=== PATIENT | female | born 1955 | race Caucasian/White ===

== ENCOUNTER → 2016-08-31 | Outpatient (CLI) | payer BC ==
[~2016-08-31] MED LIST: ASPI325T5 PO; ATAC8TAB PO; ATEN25TA PO; ESTR62CR PV; FISH1000 PO; HYDR12.55 PO; LIPI10TA PO; LYSI500C PO; OMEP20CA3 PO; PRED10PA PO; PRED10TA2 PO; SENN8.6T7 PO; VALT1TAB PO
--- NOTE | 2016-08-31 14:10 | REP ---
CHEST X-RAY: Two views. HISTORY: Shortness of breath. History of sarcoidosis. Cough. COMPARISON CHEST X-RAY: February 23, 2013. FINDINGS: The lungs are symmetrically aerated and free of infiltrate. Mild linear fibrosis is again seen in the left base. Cardiomediastinal silhouette is unremarkable and unchanged. Pleural angles are sharp. No hilar or mediastinal mass is seen. No pulmonary parenchymal nodule or infiltrate is appreciated. IMPRESSION: No active disease. Mild linear fibrosis persists in the left base. Signed by Elan Armstrong MD 08/31/2016 03:01 P
== END ==
LOC: M SMT 13:13
PROVIDERS: ATTEND Nurse Practitioner Adult Health
DX: J84.10 Pulmonary fibrosis, unspecified (principal)

== ENCOUNTER → 2016-10-11 | Outpatient (REF) | payer BC ==
[~2016-10-11] MED LIST changes: +ASPI1TAB PO; +ATEN50TA2 PO; +HYDR25TAB PO; +MACR100C3 PO
== END ==
LOC: M LAB REF 20:18
PROVIDERS: ATTEND Physician Assistant
DX: N39.0 Urinary tract infection, site not specified (principal)

== ENCOUNTER 2016-10-14 18:09 | Emergency (ER) | payer OTHER, BC ==
[~2016-10-14] VITALS: Ht 152.4 cm; Wt 81.6 kg
[~2016-10-14 18:09] MED LIST changes: -ASPI1TAB PO; -ATEN50TA2 PO; -HYDR25TAB PO; -MACR100C3 PO
[2016-10-14] MEDS ORDERED: HYDR25TAB PO (19:14)
[2016-10-14] MEDS ORDERED: ASPI1TAB PO (19:14)
[2016-10-14] MEDS ORDERED: ATEN50TA2 PO (19:14)
[2016-10-14] MEDS ORDERED: MACR100C3 PO (19:15)
[2016-10-14] MEDS ORDERED: NS 1,000 ML IV ONE (22:00)
[2016-10-14] MEDS ORDERED: ACETAMINOPHEN 325 MG TAB PO ONE (22:00)
[2016-10-14 23:57] VITALS: BP 155/71
== END 2016-10-14 23:58 | disposition home or self-care (01) ==
LOC: M ED 19:51
DX: S06.0X0A Concussion without loss of consciousness, initial encounter (principal); W22.8XXA Striking against or struck by other objects, initial encounter; Y92.238 Other place in hospital as the place of occurrence of the external cause; Y93.89 Activity, other specified; Y99.0 Civilian activity done for income or pay; E78.00 Pure hypercholesterolemia, unspecified; K21.9 Gastro-esophageal reflux disease without esophagitis; J45.909 Unspecified asthma, uncomplicated; I10 Essential (primary) hypertension; D86.9 Sarcoidosis, unspecified

== ENCOUNTER → 2016-11-01 | Outpatient (REF) | payer OTHER, BC ==
[~2016-11-01] MED LIST changes: +ASPI1TAB PO; +ATEN50TA2 PO; +HYDR25TAB PO; +MACR100C3 PO
[2016-11-01 13:01] LABS: ALBUMIN 3.6 GM/DL (3.2-5.2); ALBUMIN/GLOBULIN RATIO 1.13 (1.00-1.93); ALKALINE PHOSPHATASE 87 U/L (45-117); ALT/SGPT 29 U/L (12-78); ANION GAP 9 MEQ/L (8-16); AST/SGOT 20 U/L (15-37); BILIRUBIN,TOTAL 0.4 MG/DL (0.2-1.0); BLOOD UREA NITROGEN 16 MG/DL (7-18); CALCIUM LEVEL 9.6 MG/DL (8.8-10.2); CARBON DIOXIDE LEVEL 31 MEQ/L (21-32); CHLORIDE LEVEL 102 MEQ/L (98-107); CHOLESTEROL LEVEL 139 MG/DL (<200); CREATININE FOR GFR 0.75 MG/DL (0.55-1.02); GLOMERULAR FILTRATION RATE > 60.0 (>45); GLUCOSE, FASTING 95 MG/DL (80-110); POTASSIUM SERUM 3.6 MEQ/L (3.5-5.1); SODIUM LEVEL 142 MEQ/L (136-145); TOTAL PROTEIN 6.8 GM/DL (6.4-8.2); TRIGLYCERIDES LEVEL 137 MG/DL (<150)
[2016-11-01 13:11] LABS: BASO % 0.4 % (0.0-1.0); EOS # 0.1 K/mm3 (0.0-0.50); EOS % 1.9 % (0.0-3.0); LARGE UNSTAINED CELL # 0.1 K/mm3 (0.0-0.4); LARGE UNSTAINED CELL % 1.1 % (0.0-4.0); LYMPH # 1.1 K/mm3 (1.5-4.5); LYMPH % 14.7 % (24.0-44.0); MEAN CORPUSCULAR HEMOGLOBIN 30.3 pg (27.0-33.0); MEAN CORPUSCULAR HGB CONC 33.9 g/dl (32.0-36.5); MEAN CORPUSCULAR VOLUME 89.5 fl (80.0-96.0); MONO # 0.4 K/mm3 (0.0-0.8); MONO % 5.3 % (0.0-5.0); NEUTROPHILS # 5.5 K/mm3 (1.8-7.7); NEUTROPHILS % 76.6 % (36.0-66.0); PLATELET COUNT, AUTOMATED 265 k/mm3 (150-450); RED CELL DISTRIBUTION WIDTH 13.1 % (11.5-14.5); WHITE BLOOD COUNT 7.2 K/mm3 (4.0-10.0)
== END ==
LOC: M LABDRAW1 11:39
PROVIDERS: ATTEND Family Medicine
DX: I10 Essential (primary) hypertension (principal)

== ENCOUNTER 2017-01-26 18:39 | Inpatient (IN) | payer BC, OTHER ==
[~2017-01-26] VITALS: Ht 152.4 cm; Wt 87.3 kg
[2017-01-26] MEDS ORDERED: ASPIRIN 325 MG TAB PO ONE (19:00)
[2017-01-26 19:20] LABS: INR 1.03
--- NOTE | 2017-01-26 19:42 | REP ---
AP PORTABLE CHEST: 01/26/2017. Clinical history: Chest pain. Previous study documents cough and sarcoid in August. Comparison: 08/31/2016, 02/23/2013. Findings: Lungs marginally adequate in the degree of inflation. There is no effusion, dense consolidation, atelectasis or mass. The heart borderline for portable technique. There is no pulmonary edema, dense consolidation or parenchymal mass. The aorta is normal for age. Airway intact. No hilar or mediastinal mass. Bones intact. No free air. Impression: 1. Borderline heart size without pulmonary edema, dense consolidation or effusion. No parenchymal mass or other acute finding. Signed by Toney Gilbert MD 01/26/2017 08:36 P
[2017-01-26 19:45] LABS: BASO % 0.5 % (0.0-1.0); EOS # 0.2 K/mm3 (0.0-0.50); LARGE UNSTAINED CELL # 0.1 K/mm3 (0.0-0.4); LARGE UNSTAINED CELL % 1.6 % (0.0-4.0); LYMPH # 1.5 K/mm3 (1.5-4.5); LYMPH % 16.1 % (24.0-44.0); MEAN CORPUSCULAR HEMOGLOBIN 31.7 pg (27.0-33.0); MEAN CORPUSCULAR HGB CONC 34.9 g/dl (32.0-36.5); MEAN CORPUSCULAR VOLUME 90.9 fl (80.0-96.0); MONO # 0.5 K/mm3 (0.0-0.8); MONO % 5.1 % (0.0-5.0); NEUTROPHILS # 6.8 K/mm3 (1.8-7.7); NEUTROPHILS % 74.7 % (36.0-66.0); PLATELET COUNT, AUTOMATED 269 k/mm3 (150-450); RED CELL DISTRIBUTION WIDTH 12.1 % (11.5-14.5); WHITE BLOOD COUNT 9.1 K/mm3 (4.0-10.0)
[2017-01-26 19:46] LABS: ANION GAP 7 MEQ/L (8-16); BLOOD UREA NITROGEN 22 MG/DL (7-18); CALCIUM LEVEL 9.6 MG/DL (8.8-10.2); CARBON DIOXIDE LEVEL 30 MEQ/L (21-32); CHLORIDE LEVEL 100 MEQ/L (98-107); CREATININE FOR GFR 0.84 MG/DL (0.55-1.02); GLOMERULAR FILTRATION RATE > 60.0 (>45); GLUCOSE, FASTING 111 MG/DL (80-110); POTASSIUM SERUM 3.5 MEQ/L (3.5-5.1); SODIUM LEVEL 137 MEQ/L (136-145)
[2017-01-26] MEDS ORDERED: ISOVUE-370 76% 100ML VIAL (Q9967) As Ordered ONE (20:24)
[2017-01-26] MEDS: SYMBICORT 80/4.5MCG INHALER 6GM INH SCH (21:00)
--- NOTE | 2017-01-26 22:00 | REPUSA ---
CLINICAL HISTORY: CP, exclude PE. TECHNIQUE: Multiple incremental axial, coronal and oblique images are obtained from the thoracic inle t to the upper abdomen. Intravenous contrast material was administered as per pulmonary embolism prot ocol. COMMENTS: There is excellent opacification of pulmonary arterial system without evidence for pulmonary embolism . Aorta is of normal caliber without evidence for dissection or aneurysm. There is no evidence of pleural or parenchymal mass. There are no pleural effusions. There is no evid ence of hilar or mediastinal lymphadenopathy. The heart is enlarged. Mild pulmonary venous congestion is seen. Images of the upper abdomen demonstrate no evidence of adrenal mass. The bony structures are free of lytic or blastic lesions. Multilevel degenerative changes are seen in volving the visualized thoracolumbar spine. IMPRESSION: No evidence for pulmonary embolism. The heart is enlarged. Mild pulmonary venous congestion is seen. Thank you for your kind referral of this patient.
[2017-01-27] VITALS (7 sets, daily range): BP systolic 110–169; BP diastolic 59–87
[2017-01-27] MEDS ORDERED: CAND8TAB PO (00:08)
[2017-01-27] MEDS ORDERED: OMEP40CA2 PO (00:08)
[2017-01-27] MEDS ORDERED: ADVA45AE INH (00:08)
[2017-01-27] MEDS ORDERED: VITA500046 PO (00:08)
[2017-01-27] MEDS ORDERED: TUMS500C PO (00:08)
[2017-01-27] MEDS ORDERED: ASPI81TAEC PO (00:08)
[2017-01-27] MEDS ORDERED: VITA-130 PO (00:08)
[2017-01-27] MEDS ORDERED: VALT1TAB PO (00:08)
[2017-01-27] MEDS ORDERED: ATOR1TAB19 PO (00:08)
[2017-01-27] MEDS ORDERED: ALBU17IN INH (00:08)
[2017-01-27] MEDS ORDERED: ONDANSETRON 4MG/2ML VIAL (J2405) IV PRN (00:30)
[2017-01-27] MEDS ORDERED: ALBUTEROL SULFATE 2.5 MG/0.5 ML INH NEB SOLN NEB PRN (00:30)
[2017-01-27] MEDS: OMEPRAZOLE 20 MG CAP PO SCH ×3 (02:18→20:29)
[2017-01-27] MEDS: ATORVASTATIN 10 MG TAB PO SCH ×2 (02:18→20:30)
[2017-01-27] MEDS: ATENOLOL 50 MG TAB PO SCH ×2 (02:19→20:30)
--- NOTE | 2017-01-27 05:40 | ECGEPIP ---
Stationary ECG Study [facility] - ED Test Date: 2017-01-26 Pat Name: JI ALLEN Department: Room: - Gender: F Rn Pool: [id number] : [id number] Requested By: Tyler Gao Order Number: [id number] Reading MD: Tyler Lo Measurements Intervals [place] Rate: 80 P: 17 MS: 126 QRS: -13 QRSD: 94 T: 9 QT: 348 QTc: 403 Interpretive Statements SINUS RHYTHM MODERATE VOLTAGE CRITERIA FOR LVH, CONSIDER NORMAL VARIANT Electronically Signed On 01-27-2017 5:40:27 EDT by Tyler Lo
--- NOTE | 2017-01-27 05:42 | ECGEPIP ---
Stationary ECG Study [facility] - ED Test Date: 2017-01-26 Pat Name: JI ALLEN Department: Room: - Gender: F Senior Audit Manager: : [id number] Requested By: MADELINE LANZA Order Number: [id number] Reading MD: Tyler Lo Measurements Intervals [place] Rate: 67 P: 2 MI: 135 QRS: -16 QRSD: 84 T: 3 QT: 392 QTc: 415 Interpretive Statements SINUS RHYTHM MODERATE VOLTAGE CRITERIA FOR LVH, CONSIDER NORMAL VARIANT SIMILAR TO PRIOR ON SAME DATE Electronically Signed On 01-27-2017 5:42:34 EDT by Tyler Lo
[2017-01-27 05:52] LABS: BASO % 0.4 % (0.0-1.0); EOS # 0.2 K/mm3 (0.0-0.50); EOS % 2.7 % (0.0-3.0); LARGE UNSTAINED CELL # 0.1 K/mm3 (0.0-0.4); LARGE UNSTAINED CELL % 1.3 % (0.0-4.0); LYMPH # 1.5 K/mm3 (1.5-4.5); LYMPH % 18.5 % (24.0-44.0); MEAN CORPUSCULAR HEMOGLOBIN 31.4 pg (27.0-33.0); MEAN CORPUSCULAR HGB CONC 34.7 g/dl (32.0-36.5); MEAN CORPUSCULAR VOLUME 90.3 fl (80.0-96.0); MONO # 0.5 K/mm3 (0.0-0.8); MONO % 6.8 % (0.0-5.0); NEUTROPHILS # 5.5 K/mm3 (1.8-7.7); NEUTROPHILS % 70.2 % (36.0-66.0); PLATELET COUNT, AUTOMATED 220 k/mm3 (150-450); RED CELL DISTRIBUTION WIDTH 12.5 % (11.5-14.5); WHITE BLOOD COUNT 7.8 K/mm3 (4.0-10.0)
[2017-01-27 05:59] LABS: ANION GAP 4 MEQ/L (8-16); BLOOD UREA NITROGEN 20 MG/DL (7-18); CALCIUM LEVEL 9.5 MG/DL (8.8-10.2); CARBON DIOXIDE LEVEL 33 MEQ/L (21-32); CHLORIDE LEVEL 103 MEQ/L (98-107); CREATININE FOR GFR 0.73 MG/DL (0.55-1.02); GLOMERULAR FILTRATION RATE > 60.0 (>45); GLUCOSE, FASTING 91 MG/DL (80-110); POTASSIUM SERUM 3.6 MEQ/L (3.5-5.1); SODIUM LEVEL 140 MEQ/L (136-145)
[2017-01-27] MEDS: SYMBICORT 80/4.5MCG INHALER 6GM INH SCH ×2 (07:13→20:34)
[2017-01-27] MEDS ORDERED: SLF 3 ML SYR IV PRN (08:00)
[2017-01-27] MEDS: SLF 3 ML SYR IV SCH ×3 (08:05→20:30)
[2017-01-27] MEDS: ENOXAPARIN 40 MG/0.4 ML SYRINGE (J1650) SC SCH (08:31)
[2017-01-27] MEDS: hydroCHLOROthiazide 25 MG TAB PO SCH (08:32)
[2017-01-27] MEDS: valACYclovir HCL 500 MG TAB PO SCH (08:32)
[2017-01-27] MEDS: ACETAMINOPHEN 500 MG TAB PO PRN ×2 (09:05→18:08)
[2017-01-27] MEDS: CANDESARTAN 4MG TABLET PO SCH (11:02)
--- NOTE | 2017-01-27 12:12 | REP ---
REASON: FOR EXAM: Syncopal episode followed by confusion. COMPARISON: 11/06/2012 There is no change in the craniovertebral junction or imaged portion of the spinal cord. The ventricles and sulci are unchanged. There are no extra-axial fluid collections. There is no shift of the midline structures. Note is again made of rather extensive T2 and FLAIR hypersignal regions seen in the deep cerebral white matter and periventricular white matter. The appearance of this does not appear significantly changes in general, however, there an area in the left frontal lobe deep white matter than has increased somewhat in size. At the convexities, the intensity of the deep white matter changes does also appear to have increased somewhat. These findings are very subtle. The orbital and petrous structures, cerebellopontine angles, and posterior fossa are unchanged. The sella turcica, cavernous, and paracavernous structures are unchanged. The visualized portions of the paranasal sinuses and mastoid air cells are essentially unchanged. IMPRESSION: Deep white matter signal hyperintensities as described above. Findings, although consistent with deep white matter ischemic changes, could also be secondary to a demyelinating disorder such as MS, which would need to be correlated clinically. Signed by Kemar Solano DO 01/27/2017 12:29 P
[2017-01-27] MEDS ORDERED: MORPHINE 2 MG/ML 1ML SYRINGE IV ONE (15:30)
[2017-01-27] MEDS: IBUPROFEN 800 MG TAB PO PRN (19:50)
--- NOTE | 2017-01-27 20:08 | IPNPDOC ---
Text Note Date of Service The patient was seen on 01/27/17. NOTE Subjective: Patient seen and examined at bedside. Just came back from having MRI taken. C/o 7-810 frontal/parietal throbbing headache this AM before MRI. Was given 2 tylenol, which did not change the headache severity. Admits to baseline SOB due to her sarcoidosis. Denies slurred speech, weakness in her extremities, blurred vision, fevers, chills, nausea, vomiting, diarrhea, constipation, abdominal pain, unusual diaphoresis. Admits to tight feeling in the mid-chest sometimes that comes and goes. Admits to dizziness when sits up in bed. When lying down, is not dizzy. Denies orthopnea or PND. Admits to SOB when walking normally. Denies ever having an NH or any family hx of CAD or stroke that she knows of. Admits that her brother of an NH in his late 50s and early 60s. Her father also suffered an NH. Objective: Vitals: Afebrile VSS and reviewed. Please see below. General: Pleasant and cooperative adult female lying in bed comfortably in NAD. Answering questions appropriately. AAO x 3. HEENT: Head: normocephalic, atraumatic. Eyes: sclera are nonicteric. Nose: No external lesions Neck: Supple. No cervical LAD bilaterally. No thyromegaly. Respiratory: clear to auscultation bilaterally with no wheezes, rales, or rhonchi. Cardiovascular: regular rate and rhythm, with no murmurs, rubs or gallops. Abdomen: soft, nontender, nondistended, no hepatosplenomegaly appreciated. Bowel sounds present. Extremities: no swelling in either lower extremity bilaterally Neurological: no focal neurologic deficits appreciated bilaterally. Integumentary: skin free from rashes, lesions, abrasions. Vascular: radial and dorsalis pedis pulses palpable and symmetrical in upper and lower extremities bilaterally. Laboratory data: Please see below for full labs. CBC and BMP unremarkable. Troponin I: (-) x 2 CK-MB: 1.0 x 2 Imaging: MRI pending. CXR: borderline heart size, no mass or acute finding. CT Angio: (-) for PE, heart enlarged, mild pulmonary venous congestion. Assessment/Plan: 61 yo F with a PMH of Sarcoidosis, HTN, HLD, recurrent UTI, GERD presenting to the hospitalist service for chest pain, syncopal episode, and a brief period of altered mental status/confusion. -Chest pain: Resolved. Troponins (-) x 2. CK-MB: 1.0 x 2. CXR and CT angio only showed enlarged heart size, but no PE or other acute cardiopulmonary finding. Continue to monitor on telemetry. Echocardiogram pending. Will also get echocardiogram done. As per Dr. Barnes's note, I agree that patient should probably have a workup done for possible obstructive CAD as an outpatient such as a stress test. Patient has a family hx significant for NH in brother ( from NH) and father. -Syncope: CT Angio was (-). Patient went for MRI of brain today. EEG pending. Will follow up results when available. Orthostatic BPs were (-). Continue to monitor the patient on telemetry. to rule out cardiac etiology of syncope. -AMS/Confusion: pt awake, alert, and oriented x 3 today. Will continue to do neurologic exams and assess mental status daily. But mainly resolved. -HTN: continue candesartan, HCTZ, and atenolol. -HLD: continue atorvastatin. -Sarcoidosis: continue symbicort and albuterol nebulizer PRN. -GERD: continue omeprazole. -Mobility/Safety: PT consulted. According to PT progress note: * Patient demonstrates significant balance impairments throughout session. Patient demonstrates 2 LOB with ambulation that required assistance to correct, nursing notified. Patient demonstrates impaired functional mobility and will benefit from skilled therapy services to address the above listed impairments. Patient was supine in bed with HOB elevated following PT evaluation. PT Recommendations * OOB for meals, ambulate with nursing 3x/day CGA, GAIT BELT Will continue PT until safe for discharge or until rehabilitation/skilled PT services arranged elsewhere. DVT ppx: lovenox Immunizations as per protocol. My preceptor for this patient encounter was Dr. Rachelle Dunn, and was physically present in the building during the encounter and was fully available. As needed , all aspects of the patient interview, examination, medical decision making process, and medical care plan development were reviewed and approved by the preceptor. Preceptor is aware and concurs with the plan as stated in the body of this note and will attest to such by his/her cosignature. VS,Claus, I+O VS, Cluas, I+O Laboratory Tests 01/27/17 05:34 Red Blood Count 4.41, Mean Corpuscular Volume 90.3, Mean Corpuscular Hemoglobin 31.4, Mean Corpuscular Hemoglobin Concent 34.7, Red Cell Distribution Width 12.5 , Neutrophils (%) (Auto) 70.2 H, Lymphocytes (%) (Auto) 18.5 L, Monocytes (%) ( Auto) 6.8 H, Eosinophils (%) (Auto) 2.7, Basophils (%) (Auto) 0.4, Neutrophils # (Auto) 5.5, Lymphocytes # (Auto) 1.5, Monocytes # (Auto) 0.5, Eosinophils # ( Auto) 0.2, Basophils # (Auto) 0.0, Calcium Level 9.5 Vital Signs Date Time Temp Pulse Resp B/P (MAP) Pulse Ox O2 Delivery O2 Flow Rate FiO2 01/27/17 19:55 57 110/59 (76) 69 111/62 (78) 74 115/70 (85) 01/27/17 19:54 97.4 18 95 Room Air 01/26/17 18:40 10.0 ABRAN JACKMAN OGME-1 Jan 27, 2017 20:08
--- NOTE | 2017-01-27 20:29 | HPE ---
DATE OF ADMISSION: 01/27/2017 PRIMARY CARE PROVIDER: Pat Sr MD CHIEF COMPLAINT: Chest pain at around 6:30 p.m., followed by syncope, and confusion lasting for about an hour. PAST MEDICAL HISTORY: Hypertension. Hyperlipidemia. Sarcoidosis. Gastroesophageal reflux disease (GERD). 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 At that point, she suddenly developed chest pain in the lower sternal region, extending to just below her left breast. While her colleague was calling for help, she passed out and was urgently brought down to the emergency room by the OR staff. In the emergency room, the patient seemed to be in a daze and confused. She was following commands was asking same questions repeatedly. Her colleagues felt that she was not responding appropriately. This lasted for about an hour before she came back to her usual self. On detailed questioning, the patient does not recall coming down to the ER, does not recall getting out of the wheelchair to the bed. She cannot recall IV access being done and blood being drawn. She also does not recall getting an EKG done. She does not remember her supervisor pumping coming to visit her and talking to her. She does not remember being changed from her regular clothes to the hospital gown. She did tell me that she remembered her coming to the hospital and she remembered asking him repeatedly whether it was a Tuesday. She, however, tells me that she clearly remembers the CT scan of the chest that was done. In the ED, on initial presentation her blood pressure was 139/90, however, there were a few high values while in the emergency room, the highest being 205/100. Her lab work was within normal limits. She had two EKG done at 4 hours, report which showed sinus rhythm. Two sets of cardiac enzymes were also negative, but in view of this prolonged episode of confusion and syncope, the patient is being admitted to the hospitalist service for observation. The patient did have a CT angio of the chest done which was negative for any pulmonary embolism (PE) or any dissection. PAST SURGICAL HISTORY: Hysterectomy with bilateral salpingo-oophorectomy 1982. Inguinal hernia repair in 1980. Rotator cuff repair in 2007. Knee surgery in 2000. Cyst removal from the left breast times three. All of them negative for malignancy. ALLERGIES: DIOVAN causes crawling sensation. DARVON causes lethargy. CODEINE causes lethargy. SOCIAL HISTORY: The patient is . Does not smoke. Occasionally uses alcohol two or three times per year. Does not have any history of recreational drug abuse. HOME MEDICATIONS: - albuterol MDI 2 puffs inhalation four times a day as needed shortness of breath - Advair HFA 45 x 21, 2 puffs inhalation twice a day - Ascorbic acid 500 mg by mouth daily - aspirin 81 mg at bedtime - atenolol 50 mg at bedtime - atorvastatin 10 mg at bedtime - calcium carbonate 500 mg by mouth twice a day - candesartan 8 mg by mouth daily - cholecalciferol 5000 units by mouth daily - hydrochlorothiazide 25 mg by mouth daily - omeprazole 40 mg by mouth twice a day - valacyclovir 1 gram by mouth daily REVIEW OF SYSTEMS: All ten-point review of systems are negative except those mentioned in HPI. The patient denied any fever or chills. Denied any shortness of breath. Denied any nausea, vomiting or diarrhea. Denied any diaphoresis. Denies any abdominal pain. PHYSICAL EXAMINATION: VITAL SIGNS: Temperature 97.8, pulse 64, respiratory rate 18, blood pressure 152/86, pulse oximetry 97% on room air. GENERAL: The patient awake, alert and oriented times three. Laying down in bed, in no acute distress. HEENT: Normocephalic, atraumatic. Moist mucous membranes. Anicteric eyes. CHEST: Clear to auscultation. Bilateral vesicular breath sounds. CARDIOVASCULAR: S1, S2, regular. No rub, murmur or gallop. ABDOMEN: Obese, soft, nontender. Bowel sounds present. EXTREMITIES: No edema. LABORATORY DATA: WBC 9.1, hemoglobin 14.5, platelet 269. Sodium 137, potassium 3.5, chloride 100, bicarbonate 30, BUN 22, creatinine 0.8. Glucose 111. Calcium 9.6. Cardiac enzymes, two sets, negative. Coagulation studies are normal. RADIOLOGY: CT angiogram of the chest negative for pulmonary embolism. There is some cardiomegaly, also some mild pulmonary vascular congestion. ASSESSMENT: This is a 61-year-old female admitted for chest pain and syncope. PLAN: 1. Chest pain. The patient had two sets of cardiac enzymes and two EKG negative. At present the pain has resolved. Will admit the patient and continue to monitor on telemetry. Will also get echocardiogram done. Unlikely the patient is having an acute cardiac event, however, the patient may need further workup for obstructive coronary artery disease as an outpatient. 2. Syncope. The patient's CT angio is negative. Will get MRI of brain. Also EEG. Will also check orthostatic blood pressures. Monitor the patient on telemetry to see if there is any cardiac cause of syncope. Will also get an echo. 3. Hypertension. Will continue with candesartan and hydrochlorothiazide, atenolol. 4. Hyperlipidemia. Will continue with statin. 5. Sarcoidosis. Will give Symbicort while in the hospital and continue the albuterol nebulizer as needed. 5. Deep venous thrombosis (DVT) prophylaxis has been ordered. 6. Gastroesophageal reflux disease. Will continue with proton pump inhibitor (PPI).
[2017-01-27] MEDS: ASPIRIN 81 MG ENTERIC TAB PO SCH (20:30)
[2017-01-28] VITALS (7 sets, daily range): BP systolic 102–162; BP diastolic 50–83
[2017-01-28 05:27] LABS: BASO % 0.7 % (0.0-1.0); EOS # 0.2 K/mm3 (0.0-0.50); EOS % 3.1 % (0.0-3.0); LARGE UNSTAINED CELL # 0.1 K/mm3 (0.0-0.4); LARGE UNSTAINED CELL % 1.5 % (0.0-4.0); LYMPH # 1.6 K/mm3 (1.5-4.5); LYMPH % 20.8 % (24.0-44.0); MEAN CORPUSCULAR HEMOGLOBIN 31.9 pg (27.0-33.0); MEAN CORPUSCULAR HGB CONC 35.2 g/dl (32.0-36.5); MEAN CORPUSCULAR VOLUME 90.7 fl (80.0-96.0); MONO # 0.6 K/mm3 (0.0-0.8); MONO % 7.4 % (0.0-5.0); NEUTROPHILS # 4.9 K/mm3 (1.8-7.7); NEUTROPHILS % 66.5 % (36.0-66.0); PLATELET COUNT, AUTOMATED 229 k/mm3 (150-450); RED CELL DISTRIBUTION WIDTH 12.5 % (11.5-14.5); WHITE BLOOD COUNT 7.4 K/mm3 (4.0-10.0)
[2017-01-28] MEDS: SLF 3 ML SYR IV SCH ×3 (05:36→20:31)
[2017-01-28 05:40] LABS: ANION GAP 8 MEQ/L (8-16); BLOOD UREA NITROGEN 23 MG/DL (7-18); CALCIUM LEVEL 9.3 MG/DL (8.8-10.2); CARBON DIOXIDE LEVEL 29 MEQ/L (21-32); CHLORIDE LEVEL 102 MEQ/L (98-107); CREATININE FOR GFR 0.74 MG/DL (0.55-1.02); GLOMERULAR FILTRATION RATE > 60.0 (>45); GLUCOSE, FASTING 99 MG/DL (80-110); POTASSIUM SERUM 3.8 MEQ/L (3.5-5.1); SODIUM LEVEL 139 MEQ/L (136-145)
[2017-01-28] MEDS: SYMBICORT 80/4.5MCG INHALER 6GM INH SCH ×2 (07:10→20:12)
[2017-01-28] MEDS: CANDESARTAN 4MG TABLET PO SCH (08:50)
[2017-01-28] MEDS: ENOXAPARIN 40 MG/0.4 ML SYRINGE (J1650) SC SCH (08:51)
[2017-01-28] MEDS: OMEPRAZOLE 20 MG CAP PO SCH ×2 (08:51→20:30)
[2017-01-28] MEDS: hydroCHLOROthiazide 25 MG TAB PO SCH (08:51)
[2017-01-28] MEDS: valACYclovir HCL 500 MG TAB PO SCH (08:51)
--- NOTE | 2017-01-28 17:06 | IPNPDOC ---
Subjective Date Seen The patient was seen on 01/28/17. Subjective Chief Complaint/HPI The patient is a 61-year-old female admitted with a reason for visit of Chest Pain/Syncope And Collapse. Events since last encounter pt seen and examined, doing well, but still feels dizzy with ambulation Objective Physical Examination General Exam: Positive: No Acute Distress Eye Exam: Positive: PERRLA Chest Exam: Positive: Clear to auscultation, Normal air movement Heart Exam: Positive: Rate Normal, Regular Rhythm, Normal S1, Normal S2, Negative: Murmurs, Rubs Extremity Exam: Positive: Normal pulses, Negative: Clubbing, Cyanosis, Edema Neuro Exam: Positive: Other (unsteady gait) Assessment /Plan Problems (1) Unsteady gait Status: Acute Problem Text: * continue Physical therapy * MRI showed possible demyelinating disease * will consult neurology appreciate their inpt * will order OT and PMR screen (2) Syncope and collapse Status: Acute Problem Text: * unknown etiology maybe vasovagal * orthostatic vitals were negative * no events on tele or on EKG * will continue to monitor * continue PT for unsteady gait * EEG pending to rule out seizure activity (3) Chest pain Status: Resolved (4) HTN (hypertension) Status: Chronic Response to Treatment: Stable (5) HLD (hyperlipidemia) Status: Chronic Response to Treatment: Stable (6) Sarcoidosis Status: Chronic Response to Treatment: Stable Plan/VTE VTE Prophylaxis Ordered?: Yes VS, I&O, 24H, [facility] Vital Signs/I&O Vital Signs Date Time Temp Pulse Resp B/P (MAP) Pulse Ox O2 Delivery O2 Flow Rate FiO2 01/28/17 12:00 98.1 72 18 162/77 (105) 98 Room Air 01/26/17 18:40 10.0 I&O- Last 24 Hours up to 6 AM 01/28/17 05:59 Intake Total 1520 ml Output Total 1150 ml Balance 370 ml Laboratory Data 24H LABS Laboratory Tests 2 01/28/17 05:03: White Blood Count 7.4, Red Blood Count 4.42, Hemoglobin 14.1, Hematocrit 40.1, Mean Corpuscular Volume 90.7, Mean Corpuscular Hemoglobin 31.9, Mean Corpuscular Hemoglobin Concent 35.2, Red Cell Distribution Width 12.5, Platelet Count 229, Neutrophils (%) (Auto) 66.5H, Lymphocytes (%) (Auto) 20.8L, Monocytes (%) (Auto) 7.4H, Eosinophils (%) (Auto) 3.1H, Basophils (%) (Auto) 0.7 , Neutrophils # (Auto) 4.9, Lymphocytes # (Auto) 1.6, Monocytes # (Auto) 0.6, Eosinophils # (Auto) 0.2, Basophils # (Auto) 0.0, Large Unclassified Cells % 1.5 , Large Unclassified Cells # 0.1, Anion Gap 8, Glomerular Filtration Rate > 60.0 , Blood Urea Nitrogen 23H, Creatinine 0.74, Sodium Level 139, Potassium Level 3.8, Chloride Level 102, Carbon Dioxide Level 29, Calcium Level 9.3 CBC/BMP Laboratory Tests 01/28/17 05:03 Red Blood Count 4.42, Mean Corpuscular Volume 90.7, Mean Corpuscular Hemoglobin 31.9, Mean Corpuscular Hemoglobin Concent 35.2, Red Cell Distribution Width 12.5 , Neutrophils (%) (Auto) 66.5 H, Lymphocytes (%) (Auto) 20.8 L, Monocytes (%) ( Auto) 7.4 H, Eosinophils (%) (Auto) 3.1 H, Basophils (%) (Auto) 0.7, Neutrophils # (Auto) 4.9, Lymphocytes # (Auto) 1.6, Monocytes # (Auto) 0.6, Eosinophils # (Auto) 0.2, Basophils # (Auto) 0.0, Calcium Level 9.3 KRISTY ZUÑIGA DO Jan 28, 2017 17:06
--- NOTE | 2017-01-28 19:40 | REPUSA ---
MRI of the brain. Clinical history: syncope, rule out demyelinating disease. Comparison: 01/27/2017. Correlation is maybe CT of 10/14/2016. Technique: Multiecho multiplanar MRI images of the brain were obtained following administration of in travenous gadolinium contrast. Diffusion weighted images with ADC mapping was also obtained. The ventricles and sulci are symmetric bilaterally. The brain parenchyma demonstrates numerous scatte red T-2 hyperintense subcortical white matter lesions. There is no midline shift, mass effect, or ext ra-axial fluid collection. The midline intracranial structures do not demonstrate any gross abnormali ties. The cervical cranial junction is intact. The orbits are unremarkable. The visualized paranasal sinuses and mastoid air cells are clear. The osseous structures and superficial soft tissues are unre markable. The vascular structures demonstrate appropriate flow voids. On post contrast images, the va scular structures enhance appropriately. There are no focal enhancing lesions identified. Impression: No focal enhancing mass lesions. The diffuse scattered T2 hyperintense white matter jimenez es are stable, but do not demonstrate any focal enhancement. Findings are suspicious for a demyelinat ing process.
--- NOTE | 2017-01-28 19:50 | REPUSA ---
MRI of the thoracic spine without contrast Clinical statement: demyelinating disease. Technique: Multiecho multiplanar MRI images of the thoracic spine were obtained without administratio n of contrast. No comparison is available. Findings: The thoracic vertebral bodies are in satisfactory position and alignment. No fractures or d islocations are demonstrated. The bone marrow appears unremarkable. Intervertebral disc spaces are we ll maintained. There is no evidence of disc herniation or protrusion. The neural foramen are patent. The facet joints are intact. The surrounding soft tissues are within normal limits. Impression: Unremarkable MRI examination of the thoracic spine.
[2017-01-28] MEDS: ATORVASTATIN 10 MG TAB PO SCH (20:30)
[2017-01-28] MEDS: ASPIRIN 81 MG ENTERIC TAB PO SCH (20:31)
[2017-01-28] MEDS: ATENOLOL 50 MG TAB PO SCH (20:37)
[2017-01-29] MEDS: ACETAMINOPHEN 500 MG TAB PO PRN (00:05)
[2017-01-29 04:45] VITALS: BP 111/55
[2017-01-29 05:14] LABS: BASO % 0.5 % (0.0-1.0); EOS # 0.2 K/mm3 (0.0-0.50); EOS % 2.7 % (0.0-3.0); LARGE UNSTAINED CELL # 0.1 K/mm3 (0.0-0.4); LARGE UNSTAINED CELL % 1.6 % (0.0-4.0); LYMPH # 1.5 K/mm3 (1.5-4.5); LYMPH % 18.5 % (24.0-44.0); MEAN CORPUSCULAR HEMOGLOBIN 31.2 pg (27.0-33.0); MEAN CORPUSCULAR HGB CONC 34.5 g/dl (32.0-36.5); MEAN CORPUSCULAR VOLUME 90.5 fl (80.0-96.0); MONO # 0.5 K/mm3 (0.0-0.8); MONO % 6.4 % (0.0-5.0); NEUTROPHILS # 5.3 K/mm3 (1.8-7.7); NEUTROPHILS % 70.4 % (36.0-66.0); PLATELET COUNT, AUTOMATED 224 k/mm3 (150-450); RED CELL DISTRIBUTION WIDTH 12.5 % (11.5-14.5); WHITE BLOOD COUNT 7.5 K/mm3 (4.0-10.0)
[2017-01-29] MEDS: SLF 3 ML SYR IV SCH ×3 (05:35→21:13)
[2017-01-29 05:42] LABS: ANION GAP 4 MEQ/L (8-16); BLOOD UREA NITROGEN 21 MG/DL (7-18); CALCIUM LEVEL 9.4 MG/DL (8.8-10.2); CARBON DIOXIDE LEVEL 33 MEQ/L (21-32); CHLORIDE LEVEL 102 MEQ/L (98-107); CREATININE FOR GFR 0.75 MG/DL (0.55-1.02); GLOMERULAR FILTRATION RATE > 60.0 (>45); GLUCOSE, FASTING 87 MG/DL (80-110); POTASSIUM SERUM 3.5 MEQ/L (3.5-5.1); SODIUM LEVEL 139 MEQ/L (136-145)
[2017-01-29] MEDS: SYMBICORT 80/4.5MCG INHALER 6GM INH SCH ×2 (07:17→19:54)
[2017-01-29 08:00] VITALS: BP 104/65
[2017-01-29] MEDS: OMEPRAZOLE 20 MG CAP PO SCH ×2 (09:02→21:11)
[2017-01-29] MEDS: ENOXAPARIN 40 MG/0.4 ML SYRINGE (J1650) SC SCH (09:02)
[2017-01-29] MEDS: valACYclovir HCL 500 MG TAB PO SCH (09:02)
[2017-01-29] MEDS: CANDESARTAN 4MG TABLET PO SCH (09:02)
[2017-01-29] MEDS: hydroCHLOROthiazide 25 MG TAB PO SCH (09:02)
--- NOTE | 2017-01-29 10:18 | IPNPDOC ---
Text Note Date of Service The patient was seen on 01/29/17. NOTE Subjective: Patient seen and examined at bedside. Admits to numbness and tingling in her R leg and foot. Admits to weakness in her L leg. Denies fevers, chills, chest pain , SOB, headache, dizziness, lightheadedness, nausea, vomiting, diarrhea, constipation, abdominal pain. Denies numbness tingling anywhere else. States last BM was yesterday. Pt states Dr. Nails saw her yesterday, and was going to get MRI of the brain, thoracic spine, and cervical spine. Tells me today that she does have numbness in her feet every time she drives, sometimes only R sided. Admits she gets hot and sweaty sporadically at times. Tells me she has stumbled and fell sporadically throughout the years, and her coworkers notice this. Admits that in her 20s, she's had a period of 2 weeks where her legs went numb and did not gain back feeling for a while. Cannot remember if she's ever had any monocular blindness however. Admits that sometimes both of her entire hands go numb that extend up into her wrists and forearms at times as well. Objective: Vitals: T 97.8 P55 RR 18 BP 111/55 O2 Sat: 96% room air General: Pleasant and cooperative adult female lying in bed comfortably in NAD. Answering questions appropriately. AAO x 3. HEENT: Head: normocephalic, atraumatic. Eyes: EOMI intact bilaterally. PERRL bilaterally. Sclera are nonicteric. Nose: No external lesions. Throat: moist buccal mucosa. Pharnyx without erythema or exudates. Neck: Supple. No cervical LAD bilaterally. No thyromegaly. Respiratory: clear to auscultation bilaterally with no wheezes, rales, or rhonchi. Cardiovascular: regular rate and rhythm, with no murmurs, rubs or gallops. Abdomen: soft, nontender, nondistended, no hepatosplenomegaly appreciated. Bowel sounds present. Extremities: no swelling in either lower extremity bilaterally MSK: muscle strength 5/5 bilateral upper extremities. 4-5/5 muscle strength in RLE. 5/5 muscle strength in LLE. Sensation intact in RLE and R foot completely. Neurological: CN 2-12 intact bilaterally. +Numbness in proximal dorsum of R foot. Integumentary: skin free from rashes, lesions, abrasions. Vascular: radial and dorsalis pedis pulses palpable and symmetrical in upper and lower extremities bilaterally. Laboratory data: Please see below for full labs. CBC unremarkable today. BMP remarkable for BUN 21, CO2 of 33. Imaging: MRI of Brain 01/28: findings suspicious for demyelinating process. Diffuse T2 hyperintense white matter changes are stable. Cervical Spine MRI 01/28: report pending Thoracic Spine MRI 01/28: unremarkable. EEG pending. Assessment/Plan: 61 yo F with a PMH of Sarcoidosis, HTN, HLD, recurrent UTI, GERD presenting to the hospitalist service for chest pain, syncopal episode, and a brief period of altered mental status/confusion. -Chest pain: Resolved. Troponins (-) x 2. CK-MB: 1.0 x [address]. CXR and CT angio only showed enlarged heart size, but no PE or other acute cardiopulmonary finding. Continue to monitor on telemetry. Echocardiogram pending. As per Dr. Barnes's note , I agree that patient should probably have a workup done for possible obstructive CAD as an outpatient such as a stress test. Patient has a family hx significant for [place] in brother ( from [place]) and father. Telemetry reviewed and patient found to be bradycardic overnight. Pulse this AM was also 55. Continue to monitor. -Syncope: MRI of the brain is suspicious for demyelinating process such as MS. EEG pending. Will follow up results when available. Orthostatic BPs done yesterday evening at 20:00 were positive. Continue to monitor the patient on telemetry to rule out cardiac etiology of syncope. Neurology consult report pending. -Gait Instability: Continue PT/OT. PM&R screen pending. Neuro consult report pending. Continue neuro checks. -AMS/Confusion: Resolved. pt awake, alert, and oriented x 3 today. Continue neuro checks. -HTN: continue candesartan, HCTZ, and atenolol. -HLD: continue atorvastatin. -Sarcoidosis: continue symbicort and albuterol nebulizer PRN. -GERD: continue omeprazole. -Mobility/Safety: PT consulted. According to PT progress note: * reviewed safe AD use with rw for now and oob with staff assist only for safety. 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 Discharge Recommendations * Cont Rehab after D/C Safe for discharge at this time * No Comment * needs rehab Will continue PT until safe for discharge or until rehabilitation/skilled PT services arranged elsewhere. DVT ppx: lovenox Immunizations as per protocol. My preceptor for this patient encounter was Dr. Rachelle Dunn, and was physically present in the building during the encounter and was fully available. As needed , all aspects of the patient interview, examination, medical decision making process, and medical care plan development were reviewed and approved by the preceptor. Preceptor is aware and concurs with the plan as stated in the body of this note and will attest to such by his/her cosignature. VS,Fishbone, I+O VS, Fishbone, I+O Laboratory Tests 01/29/17 04:26 Red Blood Count 4.28, Mean Corpuscular Volume 90.5, Mean Corpuscular Hemoglobin 31.2, Mean Corpuscular Hemoglobin Concent 34.5, Red Cell Distribution Width 12.5 , Neutrophils (%) (Auto) 70.4 H, Lymphocytes (%) (Auto) 18.5 L, Monocytes (%) ( Auto) 6.4 H, Eosinophils (%) (Auto) 2.7, Basophils (%) (Auto) 0.5, Neutrophils # (Auto) 5.3, Lymphocytes # (Auto) 1.5, Monocytes # (Auto) 0.5, Eosinophils # ( Auto) 0.2, Basophils # (Auto) 0.0, Calcium Level 9.4 Vital Signs Date Time Temp Pulse Resp B/P (MAP) Pulse Ox O2 Delivery O2 Flow Rate FiO2 01/29/17 08:00 97.4 61 18 104/65 (78) 94 Room Air 01/26/17 18:40 10.0 I&O- Last 24 Hours up to 6 AM 01/29/17 06:00 Intake Total 2000 ml Output Total 1200 ml Balance 800 ml ABRAN JACKMAN OGME-1 Jan 29, 2017 10:18
[2017-01-29 12:00] VITALS: BP 115/67
[2017-01-29] MEDS: IBUPROFEN 800 MG TAB PO PRN (15:13)
[2017-01-29 16:00] VITALS: BP_SYST 102; BP_SYST 106; BP_SYST 110; BP_DIAS 63; BP_DIAS 65
[2017-01-29 20:00] VITALS: BP 100/52
[2017-01-29] MEDS: ATORVASTATIN 10 MG TAB PO SCH (21:10)
[2017-01-29] MEDS: ASPIRIN 81 MG ENTERIC TAB PO SCH (21:11)
[2017-01-29] MEDS: ATENOLOL 50 MG TAB PO SCH (21:11)
--- NOTE | 2017-01-29 22:59 | CR ---
DATE OF CONSULTATION: 01/28/2017 REASON FOR CONSULTATION: Abnormal MRI. HISTORY OF PRESENT ILLNESS: Patient is a 61-year-old female who presents with a chief complaint of having an episode of sudden chest pain and losing consciousness. The patient did not have any seizure-like activity and did not have any postictal phase. An MRI of the brain was obtained, which showed significant white matter changes. An MRI in 2012 showed very similar findings without suspicion for demyelination; however, the current radiological read mentions demyelination in the differential. The patient does have a diagnosis of sarcoidosis 8 years ago. She has never formally been diagnosed with neurosarcoidosis. The patient is currently followed by pulmonology for that and states that her symptoms of quite stable. She is not on therapy for it. The patient has a history of experiencing an acute neurological event in her early 20s around the age of 20 or 21 with waking up with sudden numbness in her feet and toes, which progressed up her legs to involve her entire legs. She states that for 2 weeks she had severe paresthesias and numbness with weakness and difficulty with ambulating. It is unclear whether the patient had any diagnosis of transverse myelitis or Guillain-[place] syndrome. The patient states that she has a history of bilateral hand paresthesias and was diagnosed many years ago with carpal tunnel syndrome. The patient denies any sudden loss of vision. The patient states that she has chronic difficulty with imbalance over the last year with more recent falls in the last 3-6 months. She states that when ambulating she may leaning toward one particular side and lose her balance and fall. She denies any back pain or loss of bowel or bladder function. The patient complains of paresthesias of her right leg and foot when sitting for more than 5 minutes, particularly in her car. When she lies down and has her legs up in a recliner, her legs fall asleep. Upon repositioning, the sensation will return. In the emergency department, the patient was noted to have severely elevated blood pressure with a blood pressure reading of 205/100. The patient does complain of episodes of vertigo a couple months ago. She also has tinnitus and an itching feeling her ear. She had hearing test completed. She states that she does not have any hearing loss. PAST MEDICAL HISTORY: 1. Sarcoidosis. 2. Bilateral carpal tunnel syndrome. 3. Chronic low back pain with history of sciatica. 4. Acute neurological event at the age of 20 with progressive rapid ascending paresthesias and weakness of the lower extremities without a clear diagnosis. PAST SURGICAL HISTORY: 1. Hysterectomy and bilateral salpingo-oophorectomy. 2. Inguinal hernia repair in 1980. 3. Rotator cuff repair in 2007. 4. Knee surgery in 2000. 5. Cyst removal from left breast three times, all negative more malignancy. REVIEW OF SYSTEMS: A 14-point review of systems obtained and is negative except as per history of present illness (HPI). FAMILY HISTORY: Noncontributory. ALLERGIES: DIOVAN, DARVON, CODEINE. HOME MEDICATIONS: - albuterol metered-dose inhaler (MDI) two puffs inhalation four times a day as needed shortness of breath - Advair HFA 45/21, two puffs inhalation twice a day - ascorbic acid 500 mg by mouth daily - aspirin 81 mg by mouth daily - atenolol 50 mg by mouth at bedtime - atorvastatin 10 mg by mouth at bedtime - calcium carbonate 500 mg by mouth twice a day - candesartan 8 mg by mouth daily - cholecalciferol 5000 international units (IU) by mouth daily - hydrochlorothiazide 25 mg by mouth daily - omeprazole 40 mg by mouth twice a day - valacyclovir 1 gram by mouth daily PHYSICAL EXAMINATION: Blood pressure is 162/77, pulse rate 72, respiratory rate is 18, temperature 98.1 degrees Fahrenheit, oxygenation 98% on room air. Current height 5 feet 0 inches, current weight is 87.8 kg. The patient is awake, alert, oriented to person, place, and time. Speech, language, comprehension, and repetition are intact. Pupils are 3 mm, round, reactive to light. Extraocular movements are intact without any nystagmus. Sensation in V1, V2, V3 is intact to light touch. No facial asymmetry to activation. Palate elevates symmetrically. Tongue is midline. No weakness of sternocleidomastoids bilaterally. Hearing subjectively to finger rub. No pronator drift. Strength 5/5, including bilateral deltoids, biceps, triceps, handgrip, iliopsoas, quadriceps, anterior tibialis. Deep tendon reflexes are to 2+ with 2's at the Achilles. Absent Babinski signs. Sensory is intact to light touch, temperature, and vibration throughout. Coordination: Normal [id number] without any signs of ataxia or dysmetria. Gait deferred. ASSESSMENT 1. Abnormal brain MRI, suggesting small-vessel ischemic disease versus other possibilities, including neurosarcoidosis with intracranial granulomas versus demyelination. 2. MRI of the brain in 2013 compared to current MRI shows very similar findings. The patient had an episode of sudden loss of function of the lower extremities with ascending paresthesias with weakness, possibly Guillain-[place] syndrome versus transverse myelitis. Cannot entirely exclude demyelinating pathology. 3. Bilateral carpal tunnel syndrome and bilateral hand paresthesias. 4. Lower extremity paresthesias secondary to compression, improving with repositioning. 5. History of chronic low back pain with probable lumbar spondylosis with history of right-sided sciatica. PLAN 1. Obtain MRI brain with contrast, MRI cervical and thoracic spine without contrast. If MRI cervical and thoracic spine show intramedullary lesion, repeat imaging with contrast. 2. The patient will likely need electromyelogram (EMG) nerve conduction study completed as an outpatient for complaints of bilateral hand paresthesias and lower extremity paresthesias. 3. Continue physical therapy (PT), occupational therapy (OT). Consider vestibular rehabilitation for episodes of vertigo and gait imbalance. 4. Continue supportive care and optimize hypertension. 5. Obtain electroencephalogram (EEG) on Tuesday.
[2017-01-29 23:59] VITALS: BP 117/57
[2017-01-30] VITALS (7 sets, daily range): BP systolic 108–146; BP diastolic 65–86
[2017-01-30 05:47] LABS: BASO # 0.1 K/mm3 (0.0-0.2); BASO % 0.8 % (0.0-1.0); EOS # 0.2 K/mm3 (0.0-0.50); LARGE UNSTAINED CELL # 0.2 K/mm3 (0.0-0.4); LARGE UNSTAINED CELL % 2.5 % (0.0-4.0); LYMPH # 1.3 K/mm3 (1.5-4.5); LYMPH % 16.5 % (24.0-44.0); MEAN CORPUSCULAR HEMOGLOBIN 30.9 pg (27.0-33.0); MEAN CORPUSCULAR VOLUME 90.9 fl (80.0-96.0); MONO # 0.6 K/mm3 (0.0-0.8); MONO % 7.3 % (0.0-5.0); NEUTROPHILS # 5.5 K/mm3 (1.8-7.7); NEUTROPHILS % 69.9 % (36.0-66.0); PLATELET COUNT, AUTOMATED 224 k/mm3 (150-450); RED CELL DISTRIBUTION WIDTH 12.3 % (11.5-14.5); WHITE BLOOD COUNT 7.8 K/mm3 (4.0-10.0)
[2017-01-30 05:49] LABS: ANION GAP 4 MEQ/L (8-16); BLOOD UREA NITROGEN 23 MG/DL (7-18); CALCIUM LEVEL 9.7 MG/DL (8.8-10.2); CARBON DIOXIDE LEVEL 32 MEQ/L (21-32); CHLORIDE LEVEL 105 MEQ/L (98-107); CREATININE FOR GFR 0.68 MG/DL (0.55-1.02); GLOMERULAR FILTRATION RATE > 60.0 (>45); GLUCOSE, FASTING 91 MG/DL (80-110); POTASSIUM SERUM 3.7 MEQ/L (3.5-5.1); SODIUM LEVEL 141 MEQ/L (136-145)
[2017-01-30] MEDS: SLF 3 ML SYR IV SCH ×3 (06:00→20:32)
[2017-01-30] MEDS: SYMBICORT 80/4.5MCG INHALER 6GM INH SCH ×2 (07:08→22:51)
--- NOTE | 2017-01-30 07:11 | EEG ---
DATE OF PROCEDURE: 01/28/2017 REFERRING PHYSICIAN: Dr. Rachelle Dunn DIAGNOSIS: Syncope. EEG NUMBER: [id number] HISTORY: The patient is a 61-year-old woman who had a passing out spell. This EEG was done to rule out epileptic potential. She is currently taking atenolol, Prilosec, Lipitor, hydrochlorothiazide, valacyclovir, aspirin, etc. TECHNICAL DESCRIPTION: This digital EEG was recorded by 21 scalp, ear and two EKG electrodes and was reviewed in bipolar and referential montages following reformatting in 10-20 international electrode placement system. INTERPRETATION: The patient was noted to be in awake and drowsy states during this EEG. Resting awake background rhythm consisted of well with anterior/posterior gradient comprising of 11 Hz alpha activity measuring 15-40 microvolts in amplitude which was symmetric and reactive to eye opening. Attenuation of posterior dominant rhythm was seen during transition into drowsiness. Anteriorly low voltage and mixed frequency activity was noted. Stage I and II sleep were reviewed and were symmetric bilaterally. Hyperventilation and photic stimulation remained unremarkable. EKG revealed normal sinus rhythm. No focal, lateralizing or epileptiform abnormalities were seen. No clinical or electrographic seizures were recorded. CONCLUSION: This EEG in awake, drowsy states, stage I and II sleep is within normal limits.
--- NOTE | 2017-01-30 08:26 | IPN ---
DATE: 01/30/2017 ATTENDING PHYSICIAN: Dr. Dunn PRIMARY CARE PROVIDER: Pat Sr DO HISTORY: Luz Deras was admitted with acute neurologic event. Current theory is that she has demyelinating disease. She is in the midst of a work up for this. She is feeling better. She is still a bit unsteady walking. She denies any chest pain. She denies any shortness of breath. She denies any new focal weakness. PHYSICAL EXAMINATION: 108/66. Pulse 62. Respiratory rate 18. 96% oxygen saturation. Lungs: Clear. Heart: Regular rate and rhythm. Abdomen: Soft. Nontender. No masses. No peripheral edema. Coordination is slow on [id number]-toff testing, but there is no dysmetria. There is normal strength in the arms and legs. Decreased sensation in both feet. LABORATORIES: CBC unremarkable. BMP unremarkable. Thoracic spine MRI is normal. MRI of the brain suggests demyelinating disease. MRI of cervical cord does not have a report back yet. IMPRESSION: 1. Probable demyelinating disease. She has been seen by neurology. 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 Waiting for her to be seen again by neurology and will be following their lead as far as care for this probable demyelination. 2. Hypertension. Blood pressure is well controlled. 3. Hyperlipidemia. She is on statin therapy. 4. Sarcoidosis. Could be neurologic involvement from sarcoid. Defer to neurology. 5. Chronic back pain. She uses ibuprofen for this. Denies significant back pain. 6. Paresthesias hands and feet. She needs an EMG and nerve conduction as an outpatient. 7. Rehabilitation. Physical therapy (PT), occupational therapy (OT). Possible vestibular rehabilitation per neurology. Might be a candidate for physical medicine and rehabilitation (PMR). PMR consultation ordered for Tuesday. I think she can be transferred to the floor. She has had no arrhythmias during her admission.
[2017-01-30] MEDS: hydroCHLOROthiazide 25 MG TAB PO SCH (08:34)
[2017-01-30] MEDS: OMEPRAZOLE 20 MG CAP PO SCH ×2 (08:34→20:26)
[2017-01-30] MEDS: CANDESARTAN 4MG TABLET PO SCH (08:34)
[2017-01-30] MEDS: ENOXAPARIN 40 MG/0.4 ML SYRINGE (J1650) SC SCH (08:34)
[2017-01-30] MEDS: valACYclovir HCL 500 MG TAB PO SCH (08:34)
--- NOTE | 2017-01-30 13:48 | ECHO ---
DATE OF SERVICE: 01/28/2017 AGE: 61. REFERRING PROVIDER: Dr. Tasneem Barnes. PATIENT LOCATION: Room 3229. REASON FOR THE ECHOCARDIOGRAM: Syncope. 2D MEASUREMENTS: IVS: 0.85 cm LV: 4.0 cm LVPW: 0.94 cm LA: 3.4 cm Aorta: 2.8 cm IVC: 0.8 cm DOPPLER MEASUREMENTS: Peak velocity across the aortic valve: 1.5 m/s Peak velocity across the LVOT: 0.68 m/s Mitral E: 0.68 Mitral A: 0.80 with a ratio of 0.9 Maximum tricuspid valve velocity: 1.9 m/s 2D COMMENTS: 1. Normal left ventricular size, wall thickness, and normal global left ventricular systolic function with an estimated global left ventricular systolic ejection fraction of 60% to 65%. 2. Normal left atrium. Normal right atrium and right ventricle. 3. The atrial septum appeared to be normal without evidence of defect or shunt. 4. Normal aortic root. 5. Minimally calcified aortic valve with normal leaflet excursion. Normal mitral valve, tricuspid valve. The pulmonic valve and proximal pulmonary artery branches were not well visualized. 6. The inferior vena cava was small, central venous pressure is probably low. DOPPLER: It detects trace mitral regurgitation and trace tricuspid regurgitation. The calculated pulmonary artery systolic pressure was normal. IMPRESSION; 1. Normal global left ventricular systolic function. There are features of left ventricular diastolic dysfunction manifested by abnormal relaxation. 2. Aortic valve sclerosis without stenosis or aortic regurgitation. 3. Trace mitral regurgitation. 4. Trace tricuspid regurgitation with a normal calculated pulmonary artery systolic pressure. 5. A small inferior vena cava/IVC was noted. MTDD
[2017-01-30] MEDS: ATORVASTATIN 10 MG TAB PO SCH (20:31)
[2017-01-30] MEDS: ASPIRIN 81 MG ENTERIC TAB PO SCH (20:31)
[2017-01-30] MEDS: ATENOLOL 50 MG TAB PO SCH (20:32)
[2017-01-31 05:51] LABS: BASO % 0.5 % (0.0-1.0); EOS # 0.2 K/mm3 (0.0-0.50); LARGE UNSTAINED CELL # 0.2 K/mm3 (0.0-0.4); LYMPH # 1.5 K/mm3 (1.5-4.5); LYMPH % 18.4 % (24.0-44.0); MEAN CORPUSCULAR HEMOGLOBIN 30.8 pg (27.0-33.0); MEAN CORPUSCULAR HGB CONC 33.5 g/dl (32.0-36.5); MEAN CORPUSCULAR VOLUME 91.9 fl (80.0-96.0); MONO # 0.5 K/mm3 (0.0-0.8); MONO % 6.7 % (0.0-5.0); NEUTROPHILS # 5.3 K/mm3 (1.8-7.7); NEUTROPHILS % 69.3 % (36.0-66.0); PLATELET COUNT, AUTOMATED 217 k/mm3 (150-450); RED CELL DISTRIBUTION WIDTH 12.7 % (11.5-14.5); WHITE BLOOD COUNT 7.6 K/mm3 (4.0-10.0)
[2017-01-31 06:00] VITALS: BP 125/66
[2017-01-31 06:02] LABS: ANION GAP 6 MEQ/L (8-16); BLOOD UREA NITROGEN 23 MG/DL (7-18); CALCIUM LEVEL 9.3 MG/DL (8.8-10.2); CARBON DIOXIDE LEVEL 30 MEQ/L (21-32); CHLORIDE LEVEL 102 MEQ/L (98-107); GLOMERULAR FILTRATION RATE > 60.0 (>45); GLUCOSE, FASTING 85 MG/DL (80-110); POTASSIUM SERUM 3.7 MEQ/L (3.5-5.1); SODIUM LEVEL 138 MEQ/L (136-145)
[2017-01-31] MEDS: SYMBICORT 80/4.5MCG INHALER 6GM INH SCH ×2 (07:59→20:05)
[2017-01-31] MEDS ORDERED: MIRALAX *UNIT DOSE* 17GM PACKET PO SCH (09:00)
[2017-01-31] MEDS ORDERED: SENOKOT S TAB PO SCH (09:00)
[2017-01-31] MEDS: valACYclovir HCL 500 MG TAB PO SCH (09:49)
[2017-01-31] MEDS: OMEPRAZOLE 20 MG CAP PO SCH (09:50)
[2017-01-31] MEDS: hydroCHLOROthiazide 25 MG TAB PO SCH (09:50)
[2017-01-31] MEDS: ENOXAPARIN 40 MG/0.4 ML SYRINGE (J1650) SC SCH (09:50)
[2017-01-31] MEDS: CANDESARTAN 4MG TABLET PO SCH (09:50)
--- NOTE | 2017-01-31 12:14 | DSES ---
DATE OF ADMISSION: 01/26/2017 DATE OF DISCHARGE: Luz is seen [facility]. She is stable from yesterday. She denies any visual disturbance, focal weakness. She has persistent right sided facial droop, right arm and leg weakness from a stroke a few years ago. She says she has some patchy numbness in her right leg. She passed her home safety evaluation. Neurology had been discussing PMR, but I am not sure she qualifies for this. Plan is for outpatient EMG, nerve conduction study. Her blood pressure has been well controlled overall and her echocardiogram was unremarkable. PHYSICAL EXAMINATION: 136/76, pulse of 69, respiratory rate 18, 92% oxygen saturation. She is alert and conversant, in no distress. Tympanic membranes and oropharynx benign. Neck no masses. Lungs clear. Heart regular rate and rhythm, without murmur. Abdomen soft, nontender, no masses. Slightly weak right upper extremity compared to the left. Decreased sensation, right lower leg. LABS: Sodium 138, potassium 3.7, BUN 23, creatinine 0.7, glucose 85, white count 7.6, hemoglobin 13.2, platelets 217. DISPOSITION: The patient can be discharged today if neurology agrees. They should be back rounding on her today. I spoke with the charge nurse and asked them to notify neurology of the pending discharge. Outpatient workup can be completed through their office. DIET: No added salt. ACTIVITY: As tolerated. DISCHARGE MEDICATIONS: : - albuterol inhaler two puffs four times a day as needed - aspirin 81 mg daily - vitamin C - atenolol 50 mg daily - atorvastatin 10 mg at bedtime - calcium carbonate 500 mg twice a day - candesartan 8 mg daily - vitamin D 5000 units daily - hydrochlorothiazide 25 mg daily - omeprazole 40 mg daily - Advair 45/25 one inhalation twice a day - Valtrex 1 gram daily - no added salt diet - activity as tolerated Followup with primary care provider in a week. Followup with neurology per their office.
[2017-01-31 14:00] VITALS: BP 112/64
[2017-01-31] MEDS: ACETAMINOPHEN 500 MG TAB PO PRN (14:15)
--- NOTE | 2017-02-01 14:49 | REPUSA ---
MRI cervical spine without contrast Clinical statement: demyelinating disease. Technique: Multiecho multiplanar MRI images of the cervical spine were obtained without administratio n of contrast. No comparison is available. Findings: The cervical vertebral bodies are in satisfactory position and alignment. No fractures or d islocations are demonstrated. Normal heterogeneous bone marrow signal is noted. No osseous tumors are seen. The visualized portions of the posterior fossa are unremarkable. The cervical cranial junction is intact.. The intervertebral disc spaces and heights are well-maintained. The facet joints are int act without evidence of subluxation. The cervical spinal cord demonstrates normal signal and contour. The surrounding soft tissues are within normal limits. At the cervical vertebral levels, there is no evidence of disc herniation or protrusion. There is no central canal stenosis. The neural foramina are patent bilaterally. Impression: Unremarkable MRI examination of the cervical spine.
== END 2017-01-31 20:55 | disposition home or self-care (01) | DRG 142 ==
LOC: M ED 19:46 → M ED INP 19:47 → M PCU 01-27 01:05 → M MSPAV 01-30 17:31 → OBSVTOIN 01-31 10:06
PROVIDERS: ADMIT Internal Medicine Nephrology; ATTEND Family Medicine
DX: D86.89 Sarcoidosis of other sites (principal); R55 Syncope and collapse; I10 Essential (primary) hypertension; E78.5 Hyperlipidemia, unspecified; K21.9 Gastro-esophageal reflux disease without esophagitis; Z88.8 Allergy status to other drugs, medicaments and biological substances; Z88.5 Allergy status to narcotic agent; Z79.899 Other long term (current) drug therapy; M54.5 Low back pain; G56.01 Carpal tunnel syndrome, right upper limb; G56.02 Carpal tunnel syndrome, left upper limb

== ENCOUNTER → 2017-02-01 | Outpatient (REF) | payer BC ==
[~2017-02-01] MED LIST changes: +ADVA45AE INH; +ALBU17IN INH; +ASPI81TAEC PO; +ATOR1TAB19 PO; +CAND8TAB PO; -MACR100C3 PO; +MACR100C43 PO; +OMEP40CA2 PO; +TUMS500C PO; +VITA500046 PO; +VITA500T PO
[2017-02-01 13:48] LABS: FOLATE > 24.0 NG/ML; VITAMIN B12 LEVEL 941 PG/ML
[2017-02-05 00:07] LABS: Lyme Disease IgG/IgM Antibodie <0.91 ISR (0.00-0.90); Lyme Disease IgM Ab Quantitati <0.80 index (0.00-0.79); SJOGREN'S ANTI SS-A <0.2 AI (0.0-0.9); SJOGREN'S ANTI SS-B <0.2 AI (0.0-0.9); VITAMIN E LEVEL 10.3 mg/L (6.5-21.5)
== END ==
LOC: M LABNEURO 12:35
PROVIDERS: ATTEND Psychiatry & Neurology Neurology
DX: G37.9 Demyelinating disease of central nervous system, unspecified (principal); E07.9 Disorder of thyroid, unspecified; R20.0 Anesthesia of skin; Z13.0 Encounter for screening for diseases of the blood and blood-forming organs and certain disorders involving the immune mechanism

== ENCOUNTER → 2017-05-05 | Outpatient (REF) | payer BC | LOC: M LAB REF 19:01 | PROVIDERS: ATTEND Psychiatry & Neurology Neurology | DX: R76.8 Other specified abnormal immunological findings in serum (principal) ==

== ENCOUNTER → 2017-05-06 | Outpatient (CLI) | payer BC ==
--- NOTE | 2017-05-06 11:31 | REPMRS ---
Patient History The patient states she had a clinical breast exam in 03/24 Patient is postmenopausal. No known family history of cancer. Benign excisional biopsy of the left breast, 1978. Benign excisional biopsy of the left breast, 1977. Benign excisional biopsy of the left breast, 1976. Digital Woman Screen Mammo: May 06, 2017 - Exam #: [id number] Bilateral CC and MLO view(s) were taken. Technologist: Annemarie Means, Technologist Prior study comparison: April 15, 2016, digital woman screen mammo performed at [facility] [employer] [facility]. April 15, 2015, digital woman screen mammo performed at [facility] [employer] [facility]. FINDINGS: There are scattered fibroglandular densities. There has been no change in the appearance of the mammogram from the prior studies. There is a mild amount of residual fibroglandular tissue which is fairly symmetric. There is no interval development of dominant mass, architectural distortion, or clustered microcalcification suggestive of malignancy. ASSESSMENT: BI-RADS/ACR category 1 mammogram. Negative. Recommendation Routine screening mammogram in 1 year (for women over age 40). This mammogram was interpreted with the aid of an FDA-approved computer-aided dectection system. Electronically Signed By: Rah Carreon MD 05/06/17 [id number]
== END ==
LOC: M WHC 07:49
PROVIDERS: ATTEND Obstetrics & Gynecology
DX: Z12.31 Encounter for screening mammogram for malignant neoplasm of breast (principal)

== ENCOUNTER → 2017-05-09 | Outpatient (CLI) | payer BC ==
--- NOTE | 2017-05-09 09:39 | REP ---
Right upper quadrant sonography: History: Right upper quadrant pain. Comparison study: May 06, 2006. Findings: Scanning through right upper quadrant of the abdomen demonstrates a normal sized thin-walled gallbladder without evidence of stone or polyp. Common bile duct is normal measuring 0.5 cm in diameter. There is evidence of fatty infiltration of the liver with areas of focal fat sparing. No focal liver lesion is seen. Exam image quality is inhibited to some degree by overlying bowel gas and difficulty with breath holding. Limited views of the pancreas show no abnormality. There are several small cysts in the right kidney again noted. These include a 1.8 cm cyst mid level and a 0.7 cm cyst in the upper region. The right kidney measures 11.2 x 6.5 x 3.6 cm. There is no evidence of hydronephrosis. No other right renal abnormality is seen. There is no evidence of ascites. Impression: Two small right renal cysts again noted. Fatty infiltration of the liver suspected. Otherwise negative. Signed by Elan Armstrong MD 05/09/2017 03:02 P
--- NOTE | 2017-05-09 13:08 | REP ---
HIDA SCAN WITH GALLBLADDER EJECTION FRACTION: Following the intravenous administration of 6.6 mCi of technetium-99m mebrofenin, multiple images of the right upper quadrant are performed every 5 minutes for a period of 1 hour. Gallbladder is visualized at 10 minutes post injection. There is biliary to bowel transit at 15 minutes post injection with no scintigraphic evidence of cholecystitis. At the 1 hour emily 8 ounces of Ensure Enlive was ingested and further imaging performed for 1 hour. Gallbladder activity is measured and the gallbladder ejection fraction is calculated to be 73% which is normal. IMPRESSION: Normal gallbladder ejection fraction. Signed by Rah Carreon MD 05/09/2017 04:12 P
== END ==
LOC: M RAD 07:36
PROVIDERS: ATTEND Internal Medicine Gastroenterology
DX: R10.11 Right upper quadrant pain (principal); R11.0 Nausea

== ENCOUNTER 2017-05-16 08:04 | Outpatient (CLI) | payer BC ==
[~2017-05-16] VITALS: Ht 152.4 cm; Wt 87.1 kg
[2017-05-16] MEDS ORDERED: NS 1,000 ML IV ONE (08:15)
[2017-05-16] MEDS ORDERED: PROPOFOL 200 MG/20 ML VIAL As Ordered ONE (09:31)
[2017-05-16] MEDS ORDERED: LIDOCAINE 2% INJ 100 MG/5 ML SDV (FOR ANES.) As Ordered ONE (09:31)
[2017-05-16] MEDS ORDERED: LABETALOL HCL 100 MG/20 ML VIAL As Ordered ONE (09:37)
--- NOTE | 2017-05-16 09:45 | ROOR ---
Patient Name: Luz Deras Procedure Date: 05/16/2017 9:30 AM Date of : 1955 Age: 61 Room: [facility] Gender: Female Note Status: Finalized Procedure: Upper GI endoscopy Indications: Epigastric abdominal pain, Abdominal pain in the right upper quadrant Providers: Ian WALSH MD Referring MD: Pat Sr MD Requesting Provider: Medicines: Monitored Anesthesia Care Complications: No immediate complications. Procedure: Pre-Anesthesia Assessment: - The heart rate, respiratory rate, oxygen saturations, blood pressure, adequacy of pulmonary ventilation, and response to care were monitored throughout the procedure. The Endoscope was introduced through the mouth, and advanced to the second part of duodenum. The upper GI endoscopy was accomplished without difficulty. The patient tolerated the procedure well. Findings: A single 4 mm semi-sessile polyp was found at the pylorus. The polyp was removed with a cold snare. Resection and retrieval were complete. The exam of the stomach was otherwise normal. (somewhat elongated, compliant sometimes seen in gastroparesis) The examined esophagus was normal. The examined duodenum was normal. Impression: - A single gastric polyp. Resected and retrieved. - Stomach otherwise normal. - Normal esophagus. - Normal examined duodenum. Recommendation: - Telephone endoscopist for pathology results in 2 weeks. - Observe patient's clinical course. - Continue present medications. Ian Walsh MD Ian WALSH MD 05/16/2017 9:44:39 AM This report has been signed electronically. Number of Addenda: 0 Note Initiated On: 05/16/2017 9:30 AM Estimated Blood Loss: Estimated blood loss: none.
--- NOTE | 2017-05-16 09:58 | ROOR ---
Patient Name: Luz Deras Procedure Date: 05/16/2017 9:30 AM Date of : 1955 Age: 61 Room: [facility] Gender: Female Note Status: Finalized Procedure: Colonoscopy Indications: Screening for colorectal malignant neoplasm, Incidental abdominal pain noted Providers: Ian WALSH MD Referring MD: Pat Sr MD Requesting Provider: Medicines: Monitored Anesthesia Care Complications: No immediate complications. Procedure: Pre-Anesthesia Assessment: - The heart rate, respiratory rate, oxygen saturations, blood pressure, adequacy of pulmonary ventilation, and response to care were monitored throughout the procedure. The Colonoscope was introduced through the anus and advanced to 10 cm into the ileum. The colonoscopy was performed without difficulty. The patient tolerated the procedure well. The quality of the bowel preparation was good. Findings: The perianal and digital rectal examinations were normal. Mild diverticulosis and small internal hemorrhoids. The entire examined colon appeared normal on direct and retroflexion views. The terminal ileum appeared normal. Impression: - Mild diverticulosis and small internal hemorrhoids. - The entire examined colon is normal on direct and retroflexion views. - The examined portion of the ileum was normal. - No specimens collected. Recommendation: - Repeat colonoscopy in 10 years for screening purposes. - Perform CT scan (computed tomography) of the abdomen with contrast at appointment to be scheduled. - My office will call you to set up CT scan. Ian Walsh MD Ian WALSH MD 05/16/2017 9:57:48 AM This report has been signed electronically. Number of Addenda: 0 Note Initiated On: 05/16/2017 9:30 AM Estimated Blood Loss: Estimated blood loss: none.
[2017-05-16 10:17] VITALS: BP 140/74
== END 2017-05-16 10:30 | disposition home or self-care (01) ==
LOC: M OPP 08:04
PROVIDERS: ATTEND Internal Medicine Gastroenterology
DX: R10.13 Epigastric pain (principal); R11.0 Nausea; K57.30 Diverticulosis of large intestine without perforation or abscess without bleeding; K64.8 Other hemorrhoids; R10.11 Right upper quadrant pain; K31.7 Polyp of stomach and duodenum; I10 Essential (primary) hypertension; E78.5 Hyperlipidemia, unspecified; E05.90 Thyrotoxicosis, unspecified without thyrotoxic crisis or storm; K82.9 Disease of gallbladder, unspecified; M19.90 Unspecified osteoarthritis, unspecified site; G35 Multiple sclerosis; J45.909 Unspecified asthma, uncomplicated; D86.0 Sarcoidosis of lung; Z88.5 Allergy status to narcotic agent; Z88.8 Allergy status to other drugs, medicaments and biological substances; Z79.82 Long term (current) use of aspirin; Z79.899 Other long term (current) drug therapy; Z80.1 Family history of malignant neoplasm of trachea, bronchus and lung; Z80.51 Family history of malignant neoplasm of kidney

== ENCOUNTER → 2017-08-15 | Outpatient (REF) | payer BC ==
[2017-08-15 12:36] LABS: CREATININE FOR GFR 0.64 MG/DL (0.55-1.02); GLOMERULAR FILTRATION RATE > 60.0 (>45)
[2017-08-15 12:36] LABS: BLOOD UREA NITROGEN 26 MG/DL (7-18)
== END ==
LOC: M LABDRAW1 08:49
DX: N18.9 Chronic kidney disease, unspecified (principal)
CPT/HCPCS: 82565

== ENCOUNTER → 2017-09-05 | Outpatient (REF) | payer BC ==
[2017-09-05 12:23] LABS: BASO % 0.5 % (0.0-1.0); EOS # 0.2 10^3/uL (0.0-0.50); EOS % 2.6 % (0.0-3.0); HEMATOCRIT 39.7 % (36.0-47.0); IMMATURE GRANULOCYTE % 0.6 % (0-0); LYMPH # 1.3 10^3/uL (1.5-4.5); LYMPH % 20.5 % (24.0-44.0); MEAN CORPUSCULAR HEMOGLOBIN 29.6 pg (27.0-33.0); MEAN CORPUSCULAR HGB CONC 32.7 g/dl (32.0-36.5); MEAN CORPUSCULAR VOLUME 90.4 fl (80.0-96.0); MONO # 0.6 10^3/uL (0.0-0.8); MONO % 9.2 % (0.0-5.0); NEUTROPHILS # 4.3 10^3/uL (1.8-7.7); NEUTROPHILS % 66.6 % (36.0-66.0); PLATELET COUNT, AUTOMATED 226 10^3/uL (150-450); RED BLOOD COUNT 4.39 10^6/uL (4.00-5.40); RED CELL DISTRIBUTION WIDTH 12.6 % (11.5-14.5); WHITE BLOOD COUNT 6.4 10^3/uL (4.0-10.0)
[2017-09-05 12:53] LABS: ALBUMIN 3.8 GM/DL (3.2-5.2); ALBUMIN/GLOBULIN RATIO 1.15 (1.00-1.93); ALKALINE PHOSPHATASE 105 U/L (45-117); ALT/SGPT 43 U/L (12-78); ANION GAP 7 MEQ/L (8-16); AST/SGOT 26 U/L (7-37); BILIRUBIN,TOTAL 0.4 MG/DL (0.2-1.0); BLOOD UREA NITROGEN 22 MG/DL (7-18); CALCIUM LEVEL 9.5 MG/DL (8.8-10.2); CARBON DIOXIDE LEVEL 31 MEQ/L (21-32); CHLORIDE LEVEL 103 MEQ/L (98-107); CHOLESTEROL LEVEL 138 MG/DL (<200); CREATININE FOR GFR 0.65 MG/DL (0.55-1.30); GLOMERULAR FILTRATION RATE > 60.0 (>45); GLUCOSE, FASTING 87 MG/DL (70-100); HDL CHOLESTEROL 46 MG/DL (>40); LDL CHOLESTEROL 64.2 MG/DL (<100); NON-HDL-C 92 MG/DL; POTASSIUM SERUM 3.5 MEQ/L (3.5-5.1); SODIUM LEVEL 141 MEQ/L (136-145); TOTAL PROTEIN 7.1 GM/DL (6.4-8.2); TRIGLYCERIDES LEVEL 139 MG/DL (<150)
== END ==
LOC: M LABDRAW1 08:12
DX: I10 Essential (primary) hypertension (principal)

== ENCOUNTER 2018-04-19 15:39 | Emergency (ER) | payer OTHER, BC | END 2018-04-19 18:39 | disposition home or self-care (01) | LOC: M ED 15:39 | DX: S70.01XA Contusion of right hip, initial encounter (principal); S30.0XXA Contusion of lower back and pelvis, initial encounter; W19.XXXA Unspecified fall, initial encounter; Y92.9 Unspecified place or not applicable; Y93.89 Activity, other specified; Y99.0 Civilian activity done for income or pay; R29.6 Repeated falls; E05.90 Thyrotoxicosis, unspecified without thyrotoxic crisis or storm; I10 Essential (primary) hypertension; J45.909 Unspecified asthma, uncomplicated; Z79.82 Long term (current) use of aspirin; Z79.899 Other long term (current) drug therapy; Z88.5 Allergy status to narcotic agent; Z88.8 Allergy status to other drugs, medicaments and biological substances | CPT/HCPCS: 72110 ==

== ENCOUNTER → 2018-04-19 | Outpatient (CLI) | payer BC | LOC: M WHC 08:15 | DX: Z12.31 Encounter for screening mammogram for malignant neoplasm of breast (principal) | CPT/HCPCS: 77067 ==

== ENCOUNTER → 2018-04-20 | Outpatient (REF) | payer OTHER | LOC: M LAB REF 17:27 | DX: N39.0 Urinary tract infection, site not specified (principal) ==

== ENCOUNTER → 2018-06-09 | Outpatient (CLI) | payer SELFPAY ==
[2018-06-09 15:19] LABS: ANION GAP 10 MEQ/L (8-16); BLOOD UREA NITROGEN 14 MG/DL (7-18); CALCIUM LEVEL 9.4 MG/DL (8.8-10.2); CARBON DIOXIDE LEVEL 29 MEQ/L (21-32); CHLORIDE LEVEL 101 MEQ/L (98-107); CREATININE FOR GFR 0.75 MG/DL (0.55-1.30); GLOMERULAR FILTRATION RATE > 60.0 (>45); GLUCOSE, FASTING 74 MG/DL (70-100); POTASSIUM SERUM 3.8 MEQ/L (3.5-5.1); SODIUM LEVEL 140 MEQ/L (136-145)
== END ==
LOC: M LAB 14:39
DX: D86.9 Sarcoidosis, unspecified (principal)

== ENCOUNTER → 2018-07-04 | Outpatient (CLI) | payer BC ==
[~2018-07-04] MED LIST changes: -ADVA45AE INH; -ALBU17IN INH; -ASPI1TAB PO; -ASPI325T5 PO; -ASPI81TAEC PO; -ATAC8TAB PO; -ATEN25TA PO; -ATEN50TA2 PO; -ATOR1TAB19 PO; -CAND8TAB PO; -ESTR62CR PV; -FISH1000 PO; -HYDR12.55 PO; -HYDR25TAB PO; -LIPI10TA PO; -LYSI500C PO; -MACR100C43 PO; -OMEP20CA3 PO; -OMEP40CA2 PO; -PRED10PA PO; -PRED10TA2 PO; +PROHANCE 279.3MG/ML 15ML VIAL (A9576) As Ordered; +PROHANCE 279.3MG/ML 5ML VIAL (A9576) As Ordered; -SENN8.6T7 PO; -TUMS500C PO; -VALT1TAB PO; -VITA500046 PO; -VITA500T PO
== END ==
LOC: M RAD 16:23
DX: D86.9 Sarcoidosis, unspecified (principal); M51.24 Other intervertebral disc displacement, thoracic region; I67.82 Cerebral ischemia
CPT/HCPCS: A9576

== ENCOUNTER → 2018-07-06 | Outpatient (CLI) | payer BC | LOC: M RAD 10:52 | DX: M47.812 Spondylosis without myelopathy or radiculopathy, cervical region (principal) | CPT/HCPCS: A9576 ==

== ENCOUNTER → 2018-07-21 | Outpatient (CLI) | payer BC ==
[2018-07-21 14:12] LABS: BASO # 0.1 10^3/uL (0.0-0.2); BASO % 0.8 % (0.0-1.0); EOS # 0.2 10^3/uL (0.0-0.50); EOS % 2.5 % (0.0-3.0); HEMOGLOBIN 13.6 g/dl (12.0-15.5); IMMATURE GRANULOCYTE % 0.9 % (0-3.0); LYMPH # 1.7 10^3/uL (1.5-4.5); LYMPH % 18.2 % (24.0-44.0); MEAN CORPUSCULAR HEMOGLOBIN 29.4 pg (27.0-33.0); MEAN CORPUSCULAR HGB CONC 33.2 g/dl (32.0-36.5); MEAN CORPUSCULAR VOLUME 88.7 fl (80.0-96.0); MONO # 0.9 10^3/uL (0.0-0.8); MONO % 10.1 % (0.0-5.0); NEUTROPHILS # 6.1 10^3/uL (1.8-7.7); NEUTROPHILS % 67.5 % (36.0-66.0); PLATELET COUNT, AUTOMATED 258 10^3/uL (150-450); RED BLOOD COUNT 4.62 10^6/uL (4.00-5.40); RED CELL DISTRIBUTION WIDTH 12.8 % (11.5-14.5); WHITE BLOOD COUNT 9.1 10^3/uL (4.0-10.0)
== END ==
LOC: M LAB 13:30
DX: R90.89 Other abnormal findings on diagnostic imaging of central nervous system (principal)
CPT/HCPCS: 85025

== ENCOUNTER → 2018-08-11 | Outpatient (REF) | payer BC ==
[~2018-08-11] MED LIST changes: +ADVA45AE INH; +ALBU17IN INH; +ASPI1TAB PO; +ASPI325T5 PO; +ASPI81TAEC PO; +ATAC8TAB PO; +ATEN25TA PO; +ATEN50TA2 PO; +ATOR1TAB19 PO; +CAND8TAB PO; +ESTR62CR PV; +FISH1000 PO; +HYDR12.55 PO; +HYDR25TAB PO; +LIPI10TA PO; +LYSI500C PO; +MACR100C43 PO; +OMEP20CA3 PO; +OMEP40CA2 PO; +PRED10PA PO; +PRED10TA2 PO; -PROHANCE 279.3MG/ML 15ML VIAL (A9576) As Ordered; -PROHANCE 279.3MG/ML 5ML VIAL (A9576) As Ordered; +SENN8.6T7 PO; +TUMS500C PO; +VALT1TAB PO; +VITA500046 PO; +VITA500T PO
[2018-08-11 12:39] LABS: BASO % 0.6 % (0.0-1.0); EOS # 0.3 10^3/uL (0.0-0.50); EOS % 4.4 % (0.0-3.0); HEMATOCRIT 39.2 % (36.0-47.0); LYMPH # 1.2 10^3/uL (1.5-4.5); LYMPH % 17.1 % (24.0-44.0); MEAN CORPUSCULAR HEMOGLOBIN 29.2 pg (27.0-33.0); MEAN CORPUSCULAR HGB CONC 33.2 g/dl (32.0-36.5); MEAN CORPUSCULAR VOLUME 88.1 fl (80.0-96.0); MONO # 0.7 10^3/uL (0.0-0.8); MONO % 9.9 % (0.0-5.0); NEUTROPHILS # 4.6 10^3/uL (1.8-7.7); NEUTROPHILS % 67.3 % (36.0-66.0); PLATELET COUNT, AUTOMATED 272 10^3/uL (150-450); RED BLOOD COUNT 4.45 10^6/uL (4.00-5.40); WHITE BLOOD COUNT 6.8 10^3/uL (4.0-10.0)
[2018-08-11 12:54] LABS: ALBUMIN 3.9 GM/DL (3.2-5.2); ALT/SGPT 47 U/L (12-78); BILIRUBIN,TOTAL 0.5 MG/DL (0.2-1.0); BLOOD UREA NITROGEN 22 MG/DL (7-18); CALCIUM LEVEL 9.2 MG/DL (8.8-10.2); CARBON DIOXIDE LEVEL 28 MEQ/L (21-32); CHLORIDE LEVEL 103 MEQ/L (98-107); CHOLESTEROL LEVEL 167 MG/DL (<200); CHOLESTEROL RISK RATIO 3.711 (<5); CREATININE FOR GFR 0.68 MG/DL (0.55-1.30); GLOMERULAR FILTRATION RATE > 60.0 (>45); GLUCOSE, FASTING 107 MG/DL (70-100); HDL CHOLESTEROL 45 MG/DL (>40); LDL CHOLESTEROL 98 MG/DL (<100); NON-HDL-C 122 MG/DL; POTASSIUM SERUM 3.8 MEQ/L (3.5-5.1); SODIUM LEVEL 141 MEQ/L (136-145); TOTAL PROTEIN 6.9 GM/DL (6.4-8.2); TRIGLYCERIDES LEVEL 121 MG/DL (<150)
== END ==
LOC: M LABDRAW1 11:56
PROVIDERS: ATTEND Family Medicine
DX: I10 Essential (primary) hypertension (principal)

== ENCOUNTER 2018-09-16 23:50 | Emergency (ER) | payer OTHER, BC ==
[~2018-09-16] VITALS: Ht 152.4 cm; Wt 88.2 kg
[2018-09-17] MEDS ORDERED: dexameTHASONE 20 MG/5 ML VIAL (J1100) IV ONE (00:45)
[2018-09-17] MEDS ORDERED: IPRATROPIUM 0.5MG/ALBUTEROL 2.5MG INH SOL UD 3ML (DUONEB)(J7620) NEB ONE (00:45)
[2018-09-17] MEDS ORDERED: PRED20TA PO (01:57)
[2018-09-17 02:03] VITALS: BP 148/66
== END 2018-09-17 02:07 | disposition home or self-care (01) ==
LOC: M ED 23:50
DX: J45.901 Unspecified asthma with (acute) exacerbation (principal); D86.9 Sarcoidosis, unspecified; I10 Essential (primary) hypertension; K21.9 Gastro-esophageal reflux disease without esophagitis; Z88.5 Allergy status to narcotic agent; Z88.8 Allergy status to other drugs, medicaments and biological substances; Z79.899 Other long term (current) drug therapy; Z79.82 Long term (current) use of aspirin; Z79.51 Long term (current) use of inhaled steroids
CPT/HCPCS: 94640; 96374; 99284; J1100

== ENCOUNTER → 2018-10-17 | Outpatient (CLI) | payer BC ==
[~2018-10-17] MED LIST changes: +PRED20TA PO
--- NOTE | 2018-10-18 05:43 | REP ---
Clinical: Persistent asthma with acute exacerbation . Comparison: 01/26/2017 . Technique: PA and lateral. Findings: The mediastinum and cardiac silhouette are normal. The lung vidales are clear and without acute consolidation, effusion, or pneumothorax. The skeletal structures are intact and normal. Impression: 1. No acute cardiopulmonary process. Electronically Signed by Law Walker MD 10/18/2018 05:34 A
== END ==
LOC: M ADAMS 12:13
PROVIDERS: ATTEND Internal Medicine Pulmonary Disease
DX: J45.41 Moderate persistent asthma with (acute) exacerbation (principal); D86.0 Sarcoidosis of lung

== ENCOUNTER → 2019-04-13 | Outpatient (REF) | payer OTHER ==
[~2019-04-13] MED LIST changes: -ASPI1TAB PO; +ASPI81TA26 PO
== END ==
LOC: M LAB REF 12:57
PROVIDERS: ATTEND Obstetrics & Gynecology
DX: Z01.419 Encounter for gynecological examination (general) (routine) without abnormal findings (principal)

== ENCOUNTER → 2019-05-03 | Outpatient (CLI) | payer MEDICARE ==
--- NOTE | 2019-05-03 16:15 | REPMRS ---
Patient History The patient states she had a clinical breast exam in 04/2019. No known family history of cancer. Benign excisional biopsy of the left breast, 1978. Benign excisional biopsy of the left breast, 1977. Benign excisional biopsy of the left breast, 1976. No Hormone Replacement Therapy Digital Woman Screen Mammo: May 03, 2019 - Exam #: [id number] Bilateral CC and MLO view(s) were taken. Technologist: Meche Vaughan Technologist Prior study comparison: April 19, 2018, bilateral digital woman screen mammo performed at [facility]. May 06, 2017, digital woman screen mammo performed at [facility] [employer] [facility]. April 15, 2016, digital woman screen mammo performed at [facility] [employer] [facility]. FINDINGS: There are scattered fibroglandular densities. There has been no change in the appearance of the mammogram from the prior studies. There is a mild amount of scattered fibroglandular density which is fairly symmetric. There is no interval development of dominant mass, architectural distortion, or grouped microcalcification suggestive of malignancy. 3-D tomosynthesis shows no additional findings. Assessment: BI-RADS/ACR category 1 mammogram. Negative Mammogram. Recommendation Routine screening mammogram of both breasts in 1 year (for women over age 40). This patient's Lifetime Breast Cancer Risk is estimated at 3.9 %. This mammogram was interpreted with the aid of an FDA-approved computer-aided dectection system. Electronically Signed By: Rafat Armstrong MD 05/03/19 [id number]
== END ==
LOC: M WHC 13:42
PROVIDERS: ATTEND Obstetrics & Gynecology
DX: Z12.31 Encounter for screening mammogram for malignant neoplasm of breast (principal)

== ENCOUNTER 2019-05-25 19:12 | Emergency (ER) | payer MEDICARE ==
[~2019-05-25] VITALS: Ht 152.4 cm; Wt 87.3 kg
[~2019-05-25 19:12] MED LIST changes: -OMEP40CA2 PO; +OMEP40CA97 PO
[2019-05-25] MEDS ORDERED: TOPI25TA10 PO (19:22)
[2019-05-25] MEDS ORDERED: MELO7.5T35 PO (19:22)
--- NOTE | 2019-05-25 20:26 | REPVR ---
PROCEDURE INFORMATION: Exam: CT Head Without Contrast Exam date and time: 05/25/2019 8:00 PM Clinical history: 63 years old, female; Other: CVA; Additional info: CVA - nursing interventions must not delay CT TECHNIQUE: Imaging protocol: Computed tomography of the head without contrast. Radiation optimization: All CT scans at this facility use at least one of these dose optimization techniques: automated exposure control; mA and/or kV adjustment per patient size (includes targeted exams where dose is matched to clinical indication); or iterative reconstruction. COMPARISON: CT Head without contrast 10/14/2016 10:43 PM FINDINGS: Brain: No intracranial mass, mass effect or midline shift. No acute intracranial hemorrhage. No CT evidence of acute cortical infarct. Mild decreased attenuation in periventricular/centrum semiovale white matter. Ventricles: Ventricles, cisterns, and sulci are normal in size for age. Bones/joints: No calvarial fracture or destructive process. Sinuses: Imaged paranasal sinuses are clear. Mastoid air cells: Mastoid air cells are normally aerated. Orbits: Imaged orbits are unremarkable. Soft tissues: No focal extracranial soft tissue swelling. IMPRESSION: No acute or concerning focal intracranial abnormality. Electronically signed by: Jalen Baig On 05/25/2019 20:26:40 PM
[2019-05-25 20:32] LABS: BASO % 0.5 % (0.0-1.0); EOS # 0.2 10^3/uL (0.0-0.5); EOS % 2.6 % (0.0-3.0); HEMATOCRIT 41.6 % (36.0-47.0); HEMOGLOBIN 14.1 g/dl (12.0-15.5); LYMPH # 1.6 10^3/uL (1.5-5.0); LYMPH % 20.7 % (24.0-44.0); MEAN CORPUSCULAR HGB CONC 33.9 g/dl (32.0-36.5); MEAN CORPUSCULAR VOLUME 88.5 fl (80.0-96.0); MONO # 0.6 10^3/uL (0.0-0.8); MONO % 7.3 % (0.0-5.0); NEUTROPHILS # 5.3 10^3/uL (1.5-8.5); NEUTROPHILS % 68.6 % (36.0-66.0); PLATELET COUNT, AUTOMATED 227 10^3/uL (150-450); WHITE BLOOD COUNT 7.8 10^3/uL (4.0-10.0)
[2019-05-25 20:44] LABS: INR 1.08; PROTHROMBIN TIME 13.7 SECONDS (11.8-14.0)
[2019-05-25 20:45] LABS: PARTIAL THROMBOPLASTIN TIME 32.9 SECONDS (25.0-38.4)
[2019-05-25 21:02] LABS: BLOOD UREA NITROGEN 15 MG/DL (7-18); CALCIUM LEVEL 9.4 MG/DL (8.8-10.2); CARBON DIOXIDE LEVEL 28 MEQ/L (21-32); CHLORIDE LEVEL 104 MEQ/L (98-107); CREATININE FOR GFR 0.84 MG/DL (0.55-1.30); GLOMERULAR FILTRATION RATE > 60.0 (>45); GLUCOSE, FASTING 110 MG/DL (70-100); POTASSIUM SERUM 3.6 MEQ/L (3.5-5.1); SODIUM LEVEL 139 MEQ/L (136-145)
[2019-05-25] MEDS ORDERED: KETOROLAC 30 MG/ML VIAL (J1885) IV ONE (22:00)
--- NOTE | 2019-05-25 22:42 | REPVR ---
PROCEDURE INFORMATION: Exam: MR Head Without Contrast Exam date and time: 05/25/2019 10:24 PM Clinical history: 63 years old, female; Pain; Dizziness; Headache not specified; Additional info: Headache, weakness, unsteady gait TECHNIQUE: Imaging protocol: MR of the head without contrast. COMPARISON: MRI-Brain W/O FOLL BY WITH 07/04/2018 5:22 PM FINDINGS: No abnormal restriction of diffusion to indicate acute CVA. Midline structures and cerebellar tonsillar position appear normal. Ventricles, cisterns and sulci are symmetric and normal for age. No intracranial mass, midline shift or abnormal extra-axial fluid. No acute intracranial hemorrhage. Mild pattern of increased T2 and flair signal in supratentorial white matter. Optic chiasm and pituitary infundibulum appear normal. Normal vascular flow voids in major intracranial arteries and dural venous sinuses. Paranasal sinuses are clear. Mastoid air cells are normally aerated. Optic globes and orbits are unremarkable. IMPRESSION: No acute intracranial abnormality Mild chronic microangiopathic supratentorial white matter changes. Similar pattern compared to the prior MRI Electronically signed by: Jalen Baig On 05/25/2019 22:42:03 PM
[2019-05-25 23:26] VITALS: BP 128/68
== END 2019-05-25 23:30 | disposition home or self-care (01) ==
LOC: M ED 19:12
DX: R51 Headache (principal); D86.89 Sarcoidosis of other sites; R26.81 Unsteadiness on feet; Z79.899 Other long term (current) drug therapy; Z79.82 Long term (current) use of aspirin; Z88.5 Allergy status to narcotic agent; Z88.8 Allergy status to other drugs, medicaments and biological substances
CPT/HCPCS: 36415; 70450; 70551; 80048; 85025; 85610; 85730; 94760; 96374; 99284; J1885

== ENCOUNTER → 2019-06-30 | Outpatient (CLI) | payer MEDICARE ==
[~2019-06-30] MED LIST changes: +MELO7.5T35 PO; +TOPI25TA10 PO
--- NOTE | 2019-06-30 11:46 | REP ---
HISTORY: Elbow pain. No trauma. COMPARISON: No priors. FINDINGS: There is no acute fracture, dislocation, subluxation, or joint effusion. Electronically Signed by Kemar Solano DO 06/30/2019 12:24 P
== END ==
LOC: M ADAMS 11:12
PROVIDERS: ATTEND Physician Assistant
DX: M25.522 Pain in left elbow (principal)

== ENCOUNTER → 2019-08-27 | Outpatient (REF) | payer MEDICARE ==
[2019-08-27 12:13] LABS: BASO % 0.6 % (0.0-1.0); EOS # 0.2 10^3/uL (0.0-0.5); EOS % 3.1 % (0.0-3.0); HEMATOCRIT 40.8 % (36.0-47.0); LYMPH # 1.3 10^3/uL (1.5-5.0); LYMPH % 20.6 % (24.0-44.0); MEAN CORPUSCULAR HEMOGLOBIN 28.9 pg (27.0-33.0); MEAN CORPUSCULAR HGB CONC 31.9 g/dl (32.0-36.5); MEAN CORPUSCULAR VOLUME 90.7 fl (80.0-96.0); MONO # 0.6 10^3/uL (0.0-0.8); MONO % 8.4 % (0.0-5.0); NEUTROPHILS # 4.3 10^3/uL (1.5-8.5); NEUTROPHILS % 66.5 % (36.0-66.0); PLATELET COUNT, AUTOMATED 218 10^3/uL (150-450); WHITE BLOOD COUNT 6.5 10^3/uL (4.0-10.0)
[2019-08-27 12:44] LABS: ALBUMIN 3.8 GM/DL (3.2-5.2); ALT/SGPT 43 U/L (12-78); BILIRUBIN,TOTAL 0.4 MG/DL (0.2-1.0); BLOOD UREA NITROGEN 21 MG/DL (7-18); CALCIUM LEVEL 9.4 MG/DL (8.8-10.2); CARBON DIOXIDE LEVEL 26 MEQ/L (21-32); CHLORIDE LEVEL 106 MEQ/L (98-107); CHOLESTEROL LEVEL 171 MG/DL (<200); CHOLESTEROL RISK RATIO 4.885 (<5); CREATININE FOR GFR 0.89 MG/DL (0.55-1.30); GLOMERULAR FILTRATION RATE > 60.0 (>45); GLUCOSE, FASTING 106 MG/DL (70-100); HDL CHOLESTEROL 35 MG/DL (>40); LDL CHOLESTEROL 82 MG/DL (<100); NON-HDL-C 136 MG/DL; POTASSIUM SERUM 3.5 MEQ/L (3.5-5.1); SODIUM LEVEL 140 MEQ/L (136-145); TOTAL PROTEIN 7.1 GM/DL (6.4-8.2); TRIGLYCERIDES LEVEL 269 MG/DL (<150)
== END ==
LOC: M LABDRAW1 11:22
PROVIDERS: ATTEND Family Medicine
DX: I10 Essential (primary) hypertension (principal)

== ENCOUNTER → 2020-04-28 | Outpatient (CLI) | payer MEDICARE ==
[~2020-04-28] MED LIST changes: +AUGM875T28 PO; +VITA-243 PO; -VITA500T PO
[2020-04-28 14:19] LABS: BASO % 0.6 % (0.0-1.0); EOS # 0.3 10^3/uL (0.0-0.5); EOS % 4.7 % (0.0-3.0); HEMATOCRIT 39.7 % (36.0-47.0); HEMOGLOBIN 12.8 g/dl (12.0-15.5); LYMPH # 1.1 10^3/uL (1.5-5.0); LYMPH % 16.7 % (24.0-44.0); MEAN CORPUSCULAR HEMOGLOBIN 28.2 pg (27.0-33.0); MEAN CORPUSCULAR HGB CONC 32.2 g/dl (32.0-36.5); MEAN CORPUSCULAR VOLUME 87.4 fl (80.0-96.0); MONO # 0.6 10^3/uL (0.0-0.8); MONO % 8.6 % (0.0-5.0); NEUTROPHILS # 4.4 10^3/uL (1.5-8.5); NEUTROPHILS % 68.8 % (36.0-66.0); PLATELET COUNT, AUTOMATED 220 10^3/uL (150-450); RED BLOOD COUNT 4.54 10^6/uL (4.00-5.40); WHITE BLOOD COUNT 6.4 10^3/uL (4.0-10.0)
[2020-04-28 15:18] LABS: BLOOD UREA NITROGEN 20 MG/DL (7-18); CALCIUM LEVEL 9.5 MG/DL (8.8-10.2); CARBON DIOXIDE LEVEL 28 MEQ/L (21-32); CHLORIDE LEVEL 104 MEQ/L (98-107); CREATININE FOR GFR 0.98 MG/DL (0.55-1.30); FREE T4 0.84 NG/DL (0.76-1.46); GLOMERULAR FILTRATION RATE > 60.0 (>45); GLUCOSE, FASTING 122 MG/DL (70-100); POTASSIUM SERUM 3.4 MEQ/L (3.5-5.1); SODIUM LEVEL 137 MEQ/L (136-145)
== END ==
LOC: M PLALAB 11:42
PROVIDERS: ATTEND Physician Assistant Medical
DX: R63.4 Abnormal weight loss (principal)

== ENCOUNTER → 2020-05-06 | Outpatient (CLI) | payer MEDICARE ==
--- NOTE | 2020-05-06 11:05 | REPMRS ---
Patient History The patient states she had a clinical breast exam in 2019. No known family history of cancer. Benign excisional biopsy of the left breast, 1978. Benign excisional biopsy of the left breast, 1977. Benign excisional biopsy of the left breast, 1976. No Hormone Replacement Therapy 3D TOMOSYNTHESIS WAS PERFORMED. [facility] lifetime risk for breast cancer is 3.7%. VOLPARA DENSITY B. Digital Woman Screen Mammo: May 06, 2020 - Exam #: [id number] Bilateral CC and MLO view(s) were taken. Technologist: Regina Ramon, Technologist Prior study comparison: May 03, 2019, bilateral digital woman screen mammo performed at [facility]. April 19, 2018, bilateral digital woman screen mammo performed at [facility]. FINDINGS: There are scattered fibroglandular densities. There has been no change in the appearance of the mammogram from the prior studies. There is a mild amount of residual fibroglandular tissue which is fairly symmetric. There is no interval development of dominant mass, architectural distortion, or clustered microcalcification suggestive of malignancy. Assessment: BI-RADS/ACR category 1 mammogram. Negative Mammogram. Recommendation Routine screening mammogram in 1 year (for women over age 40). This mammogram was interpreted with the aid of an FDA-approved computer-aided dectection system. Electronically Signed By: Rah Carreon MD 05/06/20 0741
== END ==
LOC: M WHC 09:48
PROVIDERS: ATTEND Obstetrics & Gynecology
DX: Z12.31 Encounter for screening mammogram for malignant neoplasm of breast (principal)

== ENCOUNTER 2020-06-19 22:15 | Emergency (ER) | payer MEDICARE ==
[~2020-06-19] VITALS: Ht 152.4 cm; Wt 91.8 kg
[~2020-06-19 22:15] MED LIST changes: -AUGM875T28 PO
[2020-06-19] MEDS ORDERED: AUGM875T28 PO (23:24)
[2020-06-19 23:29] VITALS: BP 128/83
[2020-06-19] MEDS ORDERED: AUGMENTIN 875 MG TAB PO ONE (23:30)
== END 2020-06-19 23:36 | disposition home or self-care (01) ==
LOC: M ED 22:15
DX: J01.90 Acute sinusitis, unspecified (principal); Z79.82 Long term (current) use of aspirin; Z79.899 Other long term (current) drug therapy; Z88.6 Allergy status to analgesic agent; Z88.8 Allergy status to other drugs, medicaments and biological substances
CPT/HCPCS: 87880; 99283; U0003

== ENCOUNTER → 2020-08-25 | Outpatient (CLI) | payer MEDICARE ==
[~2020-08-25] MED LIST changes: +AUGM875T28 PO; +HYDR-3490 PO; -HYDR25TAB PO
[2020-08-25 12:42] LABS: BASO % 0.5 % (0.0-1.0); EOS # 0.2 10^3/uL (0.0-0.5); EOS % 2.9 % (0.0-3.0); HEMATOCRIT 40.9 % (36.0-47.0); HEMOGLOBIN 13.1 g/dl (12.0-15.5); LYMPH # 1.3 10^3/uL (1.5-5.0); LYMPH % 20.2 % (24.0-44.0); MEAN CORPUSCULAR HEMOGLOBIN 28.2 pg (27.0-33.0); MEAN CORPUSCULAR VOLUME 88.1 fl (80.0-96.0); MONO # 0.6 10^3/uL (0.0-0.8); MONO % 8.8 % (0.0-5.0); NEUTROPHILS # 4.4 10^3/uL (1.5-8.5); PLATELET COUNT, AUTOMATED 230 10^3/uL (150-450); RED BLOOD COUNT 4.64 10^6/uL (4.00-5.40); WHITE BLOOD COUNT 6.6 10^3/uL (4.0-10.0)
[2020-08-25 13:14] LABS: ALT/SGPT 41 U/L (12-78); BILIRUBIN,TOTAL 0.4 MG/DL (0.2-1.0); BLOOD UREA NITROGEN 18 MG/DL (7-18); CALCIUM LEVEL 9.9 MG/DL (8.8-10.2); CARBON DIOXIDE LEVEL 30 MEQ/L (21-32); CHLORIDE LEVEL 105 MEQ/L (98-107); CHOLESTEROL LEVEL 165 MG/DL (<200); CHOLESTEROL RISK RATIO 3.367 (<5); CREATININE FOR GFR 0.94 MG/DL (0.55-1.30); FREE T4 0.74 NG/DL (0.76-1.46); GLOMERULAR FILTRATION RATE > 60.0 (>45); GLUCOSE, FASTING 109 MG/DL (70-100); HDL CHOLESTEROL 49 MG/DL (>40); LDL CHOLESTEROL 90 MG/DL (<100); NON-HDL-C 116 MG/DL; POTASSIUM SERUM 3.6 MEQ/L (3.5-5.1); SODIUM LEVEL 141 MEQ/L (136-145); TOTAL PROTEIN 7.5 GM/DL (6.4-8.2); TRIGLYCERIDES LEVEL 130 MG/DL (<150)
== END ==
LOC: M PLALAB 11:20
PROVIDERS: ATTEND Nurse Practitioner Family
DX: I10 Essential (primary) hypertension (principal)

== ENCOUNTER → 2020-12-12 | Outpatient (CLI) | payer MEDICARE ==
[~2020-12-12] MED LIST changes: +ASPI-569 PO; -ASPI81TAEC PO
--- NOTE | 2020-12-12 12:09 | REP ---
INDICATION: COUGH COMPARISON: 08/31/2016. TECHNIQUE: PA/Lateral FINDINGS: Lungs: Clear, no infiltrate. Heart: Normal in size. Mediastinum: Mediastinal silhouette unremarkable. Pleural angles: Unremarkable.. Bones and soft tissues: There are mild degenerative changes of the spine without compression deformity. IMPRESSION: No acute pulmonary disease. <Electronically signed by Rah Carreon > 12/12/20 [id number]
== END ==
LOC: M RAD 11:24
PROVIDERS: ATTEND Nurse Practitioner Family
DX: R05 Cough (principal)

== ENCOUNTER → 2021-02-04 | Outpatient (REF) | payer MEDICARE ==
[~2021-02-04] MED LIST changes: +OMEP40CA4 PO; -OMEP40CA97 PO
== END ==
LOC: M LAB REF 15:12
PROVIDERS: ATTEND Nurse Practitioner Family
DX: N39.0 Urinary tract infection, site not specified (principal)

== ENCOUNTER → 2021-03-17 | Outpatient (CLI) | payer MEDICARE ==
[2021-03-17 15:51] LABS: CREATININE FOR GFR 0.69 MG/DL (0.55-1.30); GLOMERULAR FILTRATION RATE > 60.0 (>45)
== END ==
LOC: M PLALAB 13:55
PROVIDERS: ATTEND Nurse Practitioner Family
DX: R90.89 Other abnormal findings on diagnostic imaging of central nervous system (principal)

== ENCOUNTER → 2021-04-10 | Outpatient (CLI) | payer MEDICARE ==
[~2021-04-10] MED LIST changes: +PROHANCE 279.3MG/ML 15ML VIAL ONE; +PROHANCE 279.3MG/ML 5ML VIAL ONE
--- NOTE | 2021-04-11 17:07 | REPVR ---
PROCEDURE INFORMATION: Exam: MR Head Without and With Contrast Exam date and time: 04/10/2021 1:59 PM Age: 65 years old Clinical indication: Condition or disease; Multiple sclerosis; Additional info: Oth abnormal findings on diagnostic imaging of [employer] TECHNIQUE: Imaging protocol: MR of the head without and with intravenous contrast. Contrast material: PROHANCE; Contrast volume: 17.6 ml; Contrast route: INTRAVENOUS (IV); COMPARISON: MRI-Brain without Contrast 05/25/2019 9:58 PM FINDINGS: Brain: Redemonstration of scattered nonspecific T2/FLAIR hyperintensities of the periventricular and deep subcortical white matter, without significant change from most recent MRI brain from 05/25/2019. No intracranial hemorrhage or extra-axial fluid collection. No evidence of mass effect or midline shift. No restricted diffusion to suggest acute infarct. No abnormal intracranial enhancement. Cerebral ventricles: No ventriculomegaly. Bones/joints: Unremarkable. Paranasal sinuses: Normal as visualized. No acute sinusitis. Mastoid air cells: No mastoid effusion. Orbital cavity: Unremarkable. Soft tissues: Unremarkable. IMPRESSION: 1. No acute intracranial pathology. 2. Stable scattered nonspecific T2/FLAIR hyperintensities of the periventricular and deep subcortical white matter which could reflect sequela of chronic small vessel ischemic change and/or demyelinating disease. Electronically signed by: Sheldon Potter On 04/11/2021 17:06:34 PM
--- NOTE | 2021-04-11 17:09 | REPVR ---
PROCEDURE INFORMATION: Exam: MR Cervical Spine Without and With Contrast Exam date and time: 04/10/2021 1:59 PM Age: 65 years old Clinical indication: Condition or disease; Other: Ms; Additional info: Oth abnormal findings on diagnostic imaging of [employer] TECHNIQUE: Imaging protocol: Multiplanar magnetic resonance images of the cervical spine without and with contrast. Contrast material: PROHANCE; Contrast volume: 17.6 ml; Contrast route: INTRAVENOUS (IV); COMPARISON: MRI-C SPINE W/O FOLL BY WITH 07/06/2018 11:31 AM FINDINGS: Cervical vertebral body heights are intact. The dens is intact. No abnormal marrow signal. No cord compression, expansion, or abnormal cord signal. Visualized structures of the posterior fossa are unremarkable. Soft tissues are unremarkable. No abnormal enhancement the cervical spine. C2-C3: No significant canal or foraminal narrowing. C3-C4: Posterior disc protrusion and uncovertebral spurring cause mild bilateral foraminal narrowing. No significant canal narrowing. C4-C5: Posterior disc protrusion and uncovertebral spurring cause mild canal narrowing and moderate bilateral foraminal narrowing. C5-C6: Uncovertebral spurring causes moderate right and mild left foraminal narrowing. No significant canal narrowing. C6-C7: Posterior disc protrusion and uncovertebral spurring cause mild to moderate canal narrowing with slight effacement of the anterior thecal sac. Mild left and severe right foraminal narrowing. C7-T1: No significant canal or foraminal narrowing. IMPRESSION: 1. No acute findings in the cervical spine. 2. Multilevel spondylotic changes of the cervical spine, as detailed above Electronically signed by: Sheldon Potter On 04/11/2021 17:08:39 PM
== END ==
LOC: M PLAIMG 12:26
PROVIDERS: ATTEND Nurse Practitioner Family
DX: R90.89 Other abnormal findings on diagnostic imaging of central nervous system (principal)
CPT/HCPCS: 70553; 72156; A9576

== ENCOUNTER → 2021-05-20 | Outpatient (CLI) | payer MEDICARE ==
[~2021-05-20] MED LIST changes: -PROHANCE 279.3MG/ML 15ML VIAL ONE; -PROHANCE 279.3MG/ML 5ML VIAL ONE
--- NOTE | 2021-05-20 14:31 | REPMRS ---
Patient History The patient states she had a clinical breast exam on 04-28-21. Patient is postmenopausal. No known family history of cancer. Benign excisional biopsy of the left breast, 1978. Benign excisional biopsy of the left breast, 1977. Benign excisional biopsy of the left breast, 1976. Took estrogen for 1 year beginning at age 27. Tomosynthesis is performed. Volpara breast density is b. [facility] lifetime risk of breast cancer 3.5%. Patient states no breast complaints today. Patient has signed MRS History Sheet. Digital Woman Screen Mammo: May 20, 2021 - Exam #: [id number] Bilateral CC and MLO view(s) were taken. Technologist: Bridget Delgado Central Supply Aide Prior study comparison: May 06, 2020, bilateral digital woman screen mammo performed at [facility]. May 03, 2019, bilateral digital woman screen mammo performed at [facility]. FINDINGS: There are scattered fibroglandular densities. There has been no change in the appearance of the mammogram from the prior studies. There is a mild amount of residual fibroglandular tissue which is fairly symmetric. There is no interval development of dominant mass, architectural distortion, or clustered microcalcification suggestive of malignancy. Assessment: BI-RADS/ACR category 1 mammogram. Negative Mammogram. Recommendation Routine screening mammogram in 1 year (for women over age 40). This mammogram was interpreted with the aid of an FDA-approved computer-aided dectection system. Electronically Signed By: Rah Carreon MD 05/20/21 2186
== END ==
LOC: M WHC 13:41
PROVIDERS: ATTEND Obstetrics & Gynecology
DX: Z12.31 Encounter for screening mammogram for malignant neoplasm of breast (principal)

== ENCOUNTER → 2021-05-25 | Outpatient (CLI) | payer MEDICARE ==
[2021-05-25 10:11] LABS: BASO % 0.5 % (0.0-1.0); EOS # 0.2 10^3/uL (0.0-0.5); HEMATOCRIT 41.3 % (36.0-47.0); HEMOGLOBIN 13.5 g/dl (12.0-15.5); LYMPH # 1.6 10^3/uL (1.5-5.0); LYMPH % 21.5 % (24.0-44.0); MEAN CORPUSCULAR HEMOGLOBIN 28.3 pg (27.0-33.0); MEAN CORPUSCULAR HGB CONC 32.7 g/dl (32.0-36.5); MEAN CORPUSCULAR VOLUME 86.6 fl (80.0-96.0); MONO # 0.6 10^3/uL (0.0-0.8); MONO % 7.7 % (2.0-8.0); NEUTROPHILS % 66.9 % (36.0-66.0); PLATELET COUNT, AUTOMATED 244 10^3/uL (150-450); RED BLOOD COUNT 4.77 10^6/uL (4.00-5.40); WHITE BLOOD COUNT 7.4 10^3/uL (4.0-10.0)
[2021-05-25 11:14] LABS: FOLATE 9.8 NG/ML
[2021-05-28 01:07] LABS: HOMOCYST(E)INE SERUM 12.6 umol/L (0.0-17.2); Methylmalonic Acid 267 nmol/L (0-378)
== END ==
LOC: M PLALAB 08:52
PROVIDERS: ATTEND Psychiatry & Neurology Neurology
DX: R20.2 Paresthesia of skin (principal)

== ENCOUNTER → 2021-07-23 | Outpatient (REF) | payer MEDICARE ==
[~2021-07-23] MED LIST changes: -CAND8TAB PO; +CAND8TAB8 PO
== END ==
LOC: M LAB REF 17:05
PROVIDERS: ATTEND Nurse Practitioner Family
DX: R30.0 Dysuria (principal)

== ENCOUNTER → 2021-08-10 | Outpatient (REF) | payer MEDICARE ==
[~2021-08-10] MED LIST changes: +CAND8TAB PO; -CAND8TAB8 PO
== END ==
LOC: M LAB REF 17:15
PROVIDERS: ATTEND Nurse Practitioner Family
DX: R35.0 Frequency of micturition (principal)

== ENCOUNTER → 2021-09-18 | Outpatient (CLI) | payer MEDICARE ==
[~2021-09-18] MED LIST changes: -CAND8TAB PO; +CAND8TAB8 PO
== END ==
LOC: M WHC 13:03
PROVIDERS: ATTEND Nurse Practitioner Family
DX: M81.0 Age-related osteoporosis without current pathological fracture (principal)

== ENCOUNTER → 2021-09-29 | Outpatient (CLI) | payer MEDICARE ==
[2021-09-29 16:07] LABS: ALBUMIN 4.1 GM/DL (3.2-5.2); ALT/SGPT 39 U/L (12-78); BILIRUBIN,TOTAL 0.3 MG/DL (0.2-1.0); BLOOD UREA NITROGEN 13 MG/DL (7-18); CALCIUM LEVEL 9.6 MG/DL (8.8-10.2); CARBON DIOXIDE LEVEL 25 MEQ/L (21-32); CHLORIDE LEVEL 109 MEQ/L (98-107); CHOLESTEROL LEVEL 156 MG/DL (<200); CHOLESTEROL RISK RATIO 2.785 (<5); CREATININE FOR GFR 0.86 MG/DL (0.55-1.30); GLOMERULAR FILTRATION RATE > 60.0 (>45); GLUCOSE, FASTING 111 MG/DL (70-100); HDL CHOLESTEROL 56 MG/DL (>40); LDL CHOLESTEROL 79 MG/DL (<100); NON-HDL-C 100 MG/DL; POTASSIUM SERUM 3.9 MEQ/L (3.5-5.1); SODIUM LEVEL 140 MEQ/L (136-145); TOTAL PROTEIN 7.7 GM/DL (6.4-8.2); TRIGLYCERIDES LEVEL 106 MG/DL (<150)
== END ==
LOC: M PLALAB 13:38
PROVIDERS: ATTEND Nurse Practitioner Family
DX: I10 Essential (primary) hypertension (principal)

== ENCOUNTER → 2021-10-15 | Outpatient (CLI) | payer MEDICARE ==
[2021-10-15 17:19] LABS: BASO # 0.1 10^3/uL (0.0-0.2); BASO % 0.6 % (0.0-1.0); EOS # 0.2 10^3/uL (0.0-0.5); EOS % 2.7 % (0.0-3.0); HEMATOCRIT 41.6 % (36.0-47.0); HEMOGLOBIN 13.5 g/dl (12.0-15.5); LYMPH # 1.8 10^3/uL (1.5-5.0); LYMPH % 23.3 % (24.0-44.0); MEAN CORPUSCULAR HEMOGLOBIN 28.1 pg (27.0-33.0); MEAN CORPUSCULAR HGB CONC 32.5 g/dl (32.0-36.5); MEAN CORPUSCULAR VOLUME 86.5 fl (80.0-96.0); MONO # 0.6 10^3/uL (0.0-0.8); MONO % 7.5 % (2.0-8.0); NEUTROPHILS # 5.1 10^3/uL (1.5-8.5); NEUTROPHILS % 65.4 % (36.0-66.0); PLATELET COUNT, AUTOMATED 254 10^3/uL (150-450); RED BLOOD COUNT 4.81 10^6/uL (4.00-5.40); WHITE BLOOD COUNT 7.7 10^3/uL (4.0-10.0)
[2021-10-15 17:40] LABS: ALBUMIN 4.2 GM/DL (3.2-5.2); ALT/SGPT 36 U/L (12-78); BILIRUBIN,TOTAL 0.3 MG/DL (0.2-1.0); BLOOD UREA NITROGEN 16 MG/DL (7-18); CARBON DIOXIDE LEVEL 29 MEQ/L (21-32); CHLORIDE LEVEL 110 MEQ/L (98-107); CREATININE FOR GFR 0.84 MG/DL (0.55-1.30); GLOMERULAR FILTRATION RATE > 60.0 (>45); GLUCOSE, FASTING 101 MG/DL (70-100); LIPASE 136 U/L (73-393); POTASSIUM SERUM 4.1 MEQ/L (3.5-5.1); SODIUM LEVEL 140 MEQ/L (136-145); TOTAL PROTEIN 7.9 GM/DL (6.4-8.2)
== END ==
LOC: M PLALAB 14:41
PROVIDERS: ATTEND Nurse Practitioner Family
DX: R10.84 Generalized abdominal pain (principal)

== ENCOUNTER → 2021-10-15 | Outpatient (REF) | payer MEDICARE | LOC: M LAB REF 15:56 | PROVIDERS: ATTEND Nurse Practitioner Family | DX: R30.0 Dysuria (principal) ==

== ENCOUNTER → 2021-10-16 | Outpatient (CLI) | payer MEDICARE ==
[~2021-10-16] MED LIST changes: +GASTROGRAFIN SOLUTION 30ML (Q9963) As Ordered ONE; +ISOVUE-370 76% 100ML VIAL As Ordered ONE
== END ==
LOC: M RAD 10:05
PROVIDERS: ATTEND Nurse Practitioner Family
DX: R10.9 Unspecified abdominal pain (principal)
CPT/HCPCS: 74178; Q9963; Q9967

== ENCOUNTER → 2021-12-21 | Outpatient (CLI) | payer MEDICARE ==
[~2021-12-21] MED LIST changes: -GASTROGRAFIN SOLUTION 30ML (Q9963) As Ordered ONE; -ISOVUE-370 76% 100ML VIAL As Ordered ONE
[2021-12-21 17:56] LABS: BASO # 0.1 10^3/uL (0.0-0.2); BASO % 0.6 % (0.0-1.0); EOS # 0.1 10^3/uL (0.0-0.5); EOS % 1.6 % (0.0-3.0); HEMOGLOBIN 13.6 g/dl (12.0-15.5); LYMPH # 1.5 10^3/uL (1.5-5.0); LYMPH % 18.5 % (24.0-44.0); MEAN CORPUSCULAR HEMOGLOBIN 28.3 pg (27.0-33.0); MEAN CORPUSCULAR HGB CONC 32.4 g/dl (32.0-36.5); MEAN CORPUSCULAR VOLUME 87.3 fl (80.0-96.0); MONO # 0.7 10^3/uL (0.0-0.8); MONO % 8.2 % (2.0-8.0); NEUTROPHILS # 5.6 10^3/uL (1.5-8.5); NEUTROPHILS % 70.7 % (36.0-66.0); PLATELET COUNT, AUTOMATED 259 10^3/uL (150-450); RED BLOOD COUNT 4.81 10^6/uL (4.00-5.40); WHITE BLOOD COUNT 7.9 10^3/uL (4.0-10.0)
[2021-12-21 18:18] LABS: ALBUMIN 4.2 GM/DL (3.2-5.2); ALT/SGPT 36 U/L (12-78); BILIRUBIN,TOTAL 0.5 MG/DL (0.2-1.0); BLOOD UREA NITROGEN 14 MG/DL (7-18); C REACTIVE PROTEIN QUANTITATIV 0.67 MG/DL (0.00-0.30); CALCIUM LEVEL 10.4 MG/DL (8.8-10.2); CARBON DIOXIDE LEVEL 27 MEQ/L (21-32); CHLORIDE LEVEL 109 MEQ/L (98-107); CREATININE FOR GFR 0.82 MG/DL (0.55-1.30); FREE T4 0.91 NG/DL (0.76-1.46); GLOMERULAR FILTRATION RATE > 60.0 (>45); GLUCOSE, FASTING 127 MG/DL (70-100); MAGNESIUM LEVEL 2.7 MG/DL (1.8-2.4); POTASSIUM SERUM 3.8 MEQ/L (3.5-5.1); SODIUM LEVEL 142 MEQ/L (136-145); TOTAL PROTEIN 7.9 GM/DL (6.4-8.2)
[2021-12-21 18:20] LABS: TOTAL 25(OH) VITAMIN D 36.4 NG/ML (30.0-100.0)
[2021-12-21 19:34] LABS: ERYTHROCYTE SEDIMENTATION RATE 15 mm/hr (0-30)
== END ==
LOC: M PLALAB 15:48
PROVIDERS: ATTEND Nurse Practitioner Family
DX: R42 Dizziness and giddiness (principal); Z79.899 Other long term (current) drug therapy

== ENCOUNTER → 2022-01-07 | Outpatient (REF) | payer MEDICARE | LOC: M LAB REF 17:14 | PROVIDERS: ATTEND Nurse Practitioner Family | DX: R30.0 Dysuria (principal) ==

== ENCOUNTER → 2022-04-09 | Outpatient (CLI) | payer MEDICARE ==
[2022-04-09 11:24] LABS: BLOOD UREA NITROGEN 15 MG/DL (7-18); CALCIUM LEVEL 9.5 MG/DL (8.8-10.2); CARBON DIOXIDE LEVEL 25 MEQ/L (21-32); CHLORIDE LEVEL 107 MEQ/L (98-107); GLOMERULAR FILTRATION RATE > 60.0 (>45); GLUCOSE, FASTING 96 MG/DL (70-100); POTASSIUM SERUM 3.7 MEQ/L (3.5-5.1); SODIUM LEVEL 139 MEQ/L (136-145)
== END ==
LOC: M PLALAB 07:42
PROVIDERS: ATTEND Psychiatry & Neurology Neurology
DX: R90.89 Other abnormal findings on diagnostic imaging of central nervous system (principal)

== ENCOUNTER → 2022-04-19 | Outpatient (REF) | payer MEDICARE ==
[~2022-04-19] MED LIST changes: +AMLO25TA PO; +BUDE10.7 IH; +KETO10TAB PO
== END ==
LOC: M LAB REF 16:48
PROVIDERS: ATTEND Nurse Practitioner Family
DX: R30.0 Dysuria (principal)

== ENCOUNTER 2022-04-23 19:38 | Emergency (ER) | payer MEDICARE ==
[~2022-04-23] VITALS: Ht 152.4 cm; Wt 85.4 kg
[~2022-04-23 19:38] MED LIST changes: -AMLO25TA PO; -BUDE10.7 IH; -KETO10TAB PO
[2022-04-23] MEDS ORDERED: AMLO25TA PO (20:09)
[2022-04-23] MEDS ORDERED: BUDE10.7 IH (20:09)
[2022-04-23 21:02] LABS: BASO % 0.5 % (0.0-1.0); EOS # 0.2 10^3/uL (0.0-0.5); EOS % 1.8 % (0.0-3.0); HEMATOCRIT 40.5 % (36.0-47.0); HEMOGLOBIN 13.2 g/dl (12.0-15.5); LYMPH % 23.7 % (24.0-44.0); MEAN CORPUSCULAR HEMOGLOBIN 28.3 pg (27.0-33.0); MEAN CORPUSCULAR HGB CONC 32.6 g/dl (32.0-36.5); MEAN CORPUSCULAR VOLUME 86.9 fl (80.0-96.0); MONO # 0.7 10^3/uL (0.0-0.8); MONO % 8.5 % (2.0-8.0); NEUTROPHILS # 5.6 10^3/uL (1.5-8.5); NEUTROPHILS % 65.3 % (36.0-66.0); PLATELET COUNT, AUTOMATED 238 10^3/uL (150-450); RED BLOOD COUNT 4.66 10^6/uL (4.00-5.40); WHITE BLOOD COUNT 8.5 10^3/uL (4.0-10.0)
[2022-04-23 21:45] LABS: ALBUMIN 4.2 GM/DL (3.2-5.2); ALT/SGPT 27 U/L (12-78); BILIRUBIN,TOTAL 0.4 MG/DL (0.2-1.0); BLOOD UREA NITROGEN 13 MG/DL (7-18); CALCIUM LEVEL 9.5 MG/DL (8.8-10.2); CARBON DIOXIDE LEVEL 24 MEQ/L (21-32); CHLORIDE LEVEL 106 MEQ/L (98-107); CREATININE FOR GFR 0.91 MG/DL (0.55-1.30); GLOMERULAR FILTRATION RATE > 60.0 (>45); GLUCOSE, FASTING 87 MG/DL (70-100); POTASSIUM SERUM 3.9 MEQ/L (3.5-5.1); SODIUM LEVEL 136 MEQ/L (136-145); TOTAL PROTEIN 8.1 GM/DL (6.4-8.2)
[2022-04-24] MEDS ORDERED: KETOROLAC 30 MG/ML 1ML VIAL IV ONE (04:35)
[2022-04-24] MEDS ORDERED: KETO10TAB PO (04:39)
[2022-04-24 04:53] VITALS: BP 134/78
== END 2022-04-24 05:11 | disposition home or self-care (01) ==
LOC: M ED 19:38
DX: N20.0 Calculus of kidney (principal); I10 Essential (primary) hypertension; E78.5 Hyperlipidemia, unspecified; J44.9 Chronic obstructive pulmonary disease, unspecified; Z88.5 Allergy status to narcotic agent; Z79.82 Long term (current) use of aspirin; Z79.810 Long term (current) use of selective estrogen receptor modulators (SERMs); Z79.811 Long term (current) use of aromatase inhibitors; Z79.899 Other long term (current) drug therapy
CPT/HCPCS: 74176; 80053; 81000; 81015; 85025; 96374; 99284; J1885

== ENCOUNTER → 2022-04-28 | Outpatient (CLI) | payer MEDICARE ==
[~2022-04-28] MED LIST changes: +AMLO25TA PO; +BUDE10.7 IH; +KETO10TAB PO; +PROHANCE 279.3MG/ML 15ML VIAL As Ordered ONE; +PROHANCE 279.3MG/ML 5ML VIAL As Ordered ONE
== END ==
LOC: M RAD 10:15
PROVIDERS: ATTEND Psychiatry & Neurology Neurology
DX: D86.9 Sarcoidosis, unspecified (principal)
CPT/HCPCS: 70553; A9576

== ENCOUNTER → 2022-04-28 | Outpatient (REF) | payer MEDICARE ==
[~2022-04-28] MED LIST changes: -PROHANCE 279.3MG/ML 15ML VIAL As Ordered ONE; -PROHANCE 279.3MG/ML 5ML VIAL As Ordered ONE
[2022-04-28 15:31] LABS: APPEARANCE, URINE MANUAL CLEAR (CLEAR); COLOR, URINE MANUAL LT YELLOW (YELLOW); SPECIFIC GRAVITY,URINE MANUAL 1.005 (1.002-1.035)
[2022-04-28 15:33] LABS: BILIRUBIN, URINE MANUAL NEGATIVE (NEGATIVE); BLOOD URINE MANUAL NEGATIVE (NEGATIVE); GLUCOSE, URINE (UA) MANUAL NEGATIVE (NEGATIVE); KETONE, URINE MANUAL NEGATIVE (NEGATIVE); LEUKOCYTE ESTERASE, URINE MAN NEGATIVE (NEGATIVE); NITRITE, URINE MANUAL NEGATIVE (NEGATIVE); PROTEIN, URINE MANUAL NEGATIVE (NEGATIVE); UROBILINOGEN, URINE MANUAL NORMAL (NORMAL)
== END ==
LOC: M SMT 15:17
PROVIDERS: ATTEND Nurse Practitioner Women's Health
DX: N39.0 Urinary tract infection, site not specified (principal)

== ENCOUNTER → 2022-06-03 | Outpatient (CLI) | payer MEDICARE | LOC: M WHC 13:24 | PROVIDERS: ATTEND Obstetrics & Gynecology | DX: Z12.31 Encounter for screening mammogram for malignant neoplasm of breast (principal) ==

== ENCOUNTER → 2022-08-16 | Outpatient (CLI) | payer MEDICARE ==
[2022-08-16 15:11] LABS: ALBUMIN 4.1 G/DL (3.2-5.2); ALKALINE PHOSPHATASE 102 U/L (46-116); ALT/SGPT 32 U/L (7.0-40); AST/SGOT 23 U/L (<34); BILIRUBIN,TOTAL 0.6 MG/DL (0.3-1.2); BLOOD UREA NITROGEN 12 MG/DL (9-23); CARBON DIOXIDE LEVEL 31 MMOL/L (20-31); CHLORIDE LEVEL 102 MMOL/L (98-107); CHOLESTEROL LEVEL 158 MG/DL (<200); CHOLESTEROL RISK RATIO 3.08 (<5); CREATININE FOR GFR 0.68 MG/DL (0.55-1.30); GLOMERULAR FILTRATION RATE > 60.0 (>45); GLUCOSE, FASTING 106 MG/DL (74-106); HDL CHOLESTEROL 51.2 MG/DL (>40); LDL CHOLESTEROL 88.4 MG/DL (<100); NON-HDL-C 107 MG/DL; POTASSIUM SERUM 4.4 MMOL/L (3.5-5.1); SODIUM LEVEL 140 MMOL/L (136-145); TOTAL PROTEIN 7.3 G/DL (5.7-8.2); TRIGLYCERIDES LEVEL 92 MG/DL (<150)
== END ==
LOC: M PLALAB 09:51
PROVIDERS: ATTEND Nurse Practitioner Family
DX: E78.2 Mixed hyperlipidemia (principal); I10 Essential (primary) hypertension

== ENCOUNTER → 2022-09-06 | Outpatient (CLI) | payer MEDICARE | LOC: M PLAIMG 09:55 | PROVIDERS: ATTEND Nurse Practitioner Family | DX: R05.1 Acute cough (principal) ==

== ENCOUNTER → 2022-10-14 | Outpatient (REF) | payer MEDICARE | LOC: M LAB REF 15:25 | PROVIDERS: ATTEND Nurse Practitioner Family | DX: R30.0 Dysuria (principal) ==

== ENCOUNTER 2022-12-16 02:03 | Emergency (ER) | payer MEDICARE ==
[~2022-12-16] VITALS: Ht 165.1 cm; Wt 87.3 kg
[2022-12-16] MEDS ORDERED: GI COCKTAIL 50ML BTL(HYOSCYAMINE/MAALOX/LIDOCAINE VISCOUS)(1:3:1) PO ONE (02:40)
[2022-12-16 02:56] LABS: BASO % 0.4 % (0.0-1.0); EOS # 0.3 10^3/uL (0.0-0.5); EOS % 2.4 % (0.0-3.0); HEMATOCRIT 41.3 % (36.0-47.0); HEMOGLOBIN 13.4 g/dl (12.0-15.5); LYMPH # 1.4 10^3/uL (1.5-5.0); LYMPH % 13.4 % (24.0-44.0); MEAN CORPUSCULAR HEMOGLOBIN 27.7 pg (27.0-33.0); MEAN CORPUSCULAR HGB CONC 32.4 g/dl (32.0-36.5); MEAN CORPUSCULAR VOLUME 85.5 fl (80.0-96.0); MONO % 9.3 % (2.0-8.0); NEUTROPHILS # 7.8 10^3/uL (1.5-8.5); PLATELET COUNT, AUTOMATED 271 10^3/uL (150-450); RED BLOOD COUNT 4.83 10^6/uL (4.00-5.40); WHITE BLOOD COUNT 10.5 10^3/uL (4.0-10.0)
[2022-12-16 03:17] LABS: LIPASE 41 U/L (12-53)
[2022-12-16 03:19] LABS: CK-MB VALUE MASS < 1.0 NG/ML (<3.6)
[2022-12-16 03:19] LABS: ALBUMIN 3.9 G/DL (3.2-5.2); ALKALINE PHOSPHATASE 128 U/L (46-116); ALT/SGPT 35 U/L (7.0-40); AST/SGOT 28 U/L (<34); BILIRUBIN,DIRECT 0.1 MG/DL (<0.4); BILIRUBIN,TOTAL 0.4 MG/DL (0.3-1.2); BLOOD UREA NITROGEN 14 MG/DL (9-23); CALCIUM LEVEL 9.6 MG/DL (8.3-10.6); CARBON DIOXIDE LEVEL 27 MMOL/L (20-31); CHLORIDE LEVEL 104 MMOL/L (98-107); CREATININE FOR GFR 0.72 MG/DL (0.55-1.30); GLOMERULAR FILTRATION RATE > 60.0 (>45); GLUCOSE, FASTING 148 MG/DL (74-106); POTASSIUM SERUM 3.7 MMOL/L (3.5-5.1); SODIUM LEVEL 138 MMOL/L (136-145); TOTAL PROTEIN 7.2 G/DL (5.7-8.2)
[2022-12-16 03:21] LABS: CPK CREATINE PHOSPHOKINASE 106 U/L (34-145); MB/CK RELATIVE INDEX 0.94 (< OR =4)
[2022-12-16 05:10] LABS: CK-MB VALUE MASS < 1.0 NG/ML (<3.6)
[2022-12-16 05:11] LABS: CPK CREATINE PHOSPHOKINASE 106 U/L (34-145); MB/CK RELATIVE INDEX 0.94 (< OR =4)
[2022-12-16 06:11] LABS: APPEARANCE, URINE CLOUDY (CLEAR); BACTERIA, URINE AUTO 2+ (NEGATIVE); BILIRUBIN, URINE AUTO NEGATIVE (NEGATIVE); BLOOD, URINE BLOOD 1+ (NEGATIVE); CALCIUM OXALATE CRYSTALS MODERATE; COLOR, URINE YELLOW (YELLOW); GLUCOSE, URINE (UA) AUTO NEGATIVE (NEGATIVE); KETONE, URINE AUTO TRACE mg/dL (NEGATIVE); LEUKOCYTE ESTERASE, URINE AUTO 2+ (NEGATIVE); MUCUS, URINE SMALL (NEGATIVE); NITRITE, URINE AUTO NEGATIVE (NEGATIVE); PROTEIN, URINE AUTO 1+ mg/dL (NEGATIVE); RBC, URINE AUTO 6 /HPF (0-3); SPECIFIC GRAVITY URINE AUTO 1.017 (1.002-1.035); SQUAMOUS EPITHELIAL CELL UR AU 13 /HPF (0-6); WBC, URINE AUTO 32 /HPF (0-3)
[2022-12-16] MEDS ORDERED: MORPHINE 2 MG/ML 1ML VIAL IV ONE (10:20)
[2022-12-16] MEDS ORDERED: ONDANSETRON 4MG 2ML VIAL IV ONE (10:20)
[2022-12-16] MEDS ORDERED: NS 1,000 ML IV ONE (10:20)
[2022-12-16] MEDS ORDERED: ISOVUE-370 76% 100ML VIAL As Ordered ONE (10:33)
[2022-12-16] MEDS ORDERED: cefTRIAXone SOD 1 GM in D5W MINI-BAG PLUS 50 ML IV ONE (11:40)
[2022-12-16] MEDS ORDERED: ONDA4TAB6 PO (12:30)
[2022-12-16 12:58] VITALS: BP 170/90
[2022-12-16] MEDS ORDERED: CEFD300C41 PO (16:44)
== END 2022-12-16 12:58 | disposition home or self-care (01) ==
LOC: M ED 02:03
DX: N39.0 Urinary tract infection, site not specified (principal); K52.9 Noninfective gastroenteritis and colitis, unspecified; Z88.5 Allergy status to narcotic agent; Z79.82 Long term (current) use of aspirin; Z79.02 Long term (current) use of antithrombotics/antiplatelets; Z79.2 Long term (current) use of antibiotics; Z79.899 Other long term (current) drug therapy
CPT/HCPCS: 74177; 80048; 80076; 81001; 82550; 82553; 83605; 83690; 84484; 85025; 87086; 87507; 93005; 96361; 96374; 99284; J0696; J2405; Q9967

== ENCOUNTER → 2023-01-28 | Outpatient (CLI) | payer MEDICARE ==
[~2023-01-28] MED LIST changes: +CEFD300C41 PO; +ONDA4TAB6 PO
[2023-01-28 14:17] LABS: BASO # 0.1 10^3/uL (0.0-0.2); BASO % 0.9 % (0.0-1.0); EOS # 0.3 10^3/uL (0.0-0.5); EOS % 3.2 % (0.0-3.0); HEMATOCRIT 41.8 % (36.0-47.0); HEMOGLOBIN 13.2 g/dl (12.0-15.5); LYMPH # 1.3 10^3/uL (1.5-5.0); LYMPH % 16.2 % (24.0-44.0); MEAN CORPUSCULAR HEMOGLOBIN 27.2 pg (27.0-33.0); MEAN CORPUSCULAR HGB CONC 31.6 g/dl (32.0-36.5); MONO # 0.8 10^3/uL (0.0-0.8); MONO % 9.9 % (2.0-8.0); NEUTROPHILS # 5.6 10^3/uL (1.5-8.5); NEUTROPHILS % 69.3 % (36.0-66.0); PLATELET COUNT, AUTOMATED 266 10^3/uL (150-450); RED BLOOD COUNT 4.86 10^6/uL (4.00-5.40); WHITE BLOOD COUNT 8.1 10^3/uL (4.0-10.0)
[2023-01-28 14:18] LABS: ALBUMIN 4.1 G/DL (3.2-5.2); ALKALINE PHOSPHATASE 110 U/L (46-116); ALT/SGPT 30 U/L (7.0-40); AST/SGOT 15 U/L (<34); BILIRUBIN,TOTAL 0.4 MG/DL (0.3-1.2); BLOOD UREA NITROGEN 14 MG/DL (9-23); CALCIUM LEVEL 9.5 MG/DL (8.3-10.6); CARBON DIOXIDE LEVEL 30 MMOL/L (20-31); CHLORIDE LEVEL 103 MMOL/L (98-107); CREATININE FOR GFR 0.65 MG/DL (0.55-1.30); GLOMERULAR FILTRATION RATE > 60.0 (>45); GLUCOSE, FASTING 111 MG/DL (74-106); SODIUM LEVEL 137 MMOL/L (136-145); TOTAL PROTEIN 7.2 G/DL (5.7-8.2)
== END ==
LOC: M PLALAB 09:43
PROVIDERS: ATTEND Nurse Practitioner Family
DX: M79.89 Other specified soft tissue disorders (principal)

== ENCOUNTER → 2023-03-23 | Outpatient (CLI) | payer MEDICARE ==
[2023-03-23 13:34] LABS: BLOOD UREA NITROGEN 11 MG/DL (9-23); CREATININE FOR GFR 0.61 MG/DL (0.55-1.30); GLOMERULAR FILTRATION RATE > 60.0 (>45)
== END ==
LOC: M PLALAB 10:26
PROVIDERS: ATTEND Nurse Practitioner Family
DX: R90.89 Other abnormal findings on diagnostic imaging of central nervous system (principal)

== ENCOUNTER → 2023-03-31 | Outpatient (REF) | payer MEDICARE | LOC: M LAB REF 17:05 | PROVIDERS: ATTEND Nurse Practitioner Family | DX: R30.0 Dysuria (principal) ==

== ENCOUNTER → 2023-03-31 | Outpatient (CLI) | payer MEDICARE | LOC: M PLARAD 08:21 | PROVIDERS: ATTEND Nurse Practitioner Family | DX: R90.89 Other abnormal findings on diagnostic imaging of central nervous system (principal) ==

== ENCOUNTER → 2023-05-12 | Outpatient (REF) | payer MEDICARE | LOC: M LAB REF 16:54 | PROVIDERS: ATTEND Nurse Practitioner Family | DX: R42 Dizziness and giddiness (principal); R31.9 Hematuria, unspecified ==

== ENCOUNTER → 2023-06-07 | Outpatient (CLI) | payer MEDICARE ==
[~2023-06-07] MED LIST changes: -CEFD300C41 PO; +CEFD300C42 PO
== END ==
LOC: M WHC 11:59
PROVIDERS: ATTEND Obstetrics & Gynecology
DX: Z12.31 Encounter for screening mammogram for malignant neoplasm of breast (principal)

== ENCOUNTER → 2023-07-05 | Outpatient (REF) | payer MEDICARE ==
[2023-07-05 13:01] LABS: APPEARANCE, URINE HAZY (CLEAR); BACTERIA, URINE AUTO 1+ (NEGATIVE); BILIRUBIN, URINE AUTO NEGATIVE (NEGATIVE); BLOOD, URINE BLOOD 2+ (NEGATIVE); COLOR, URINE YELLOW (YELLOW); GLUCOSE, URINE (UA) AUTO NEGATIVE (NEGATIVE); KETONE, URINE AUTO NEGATIVE (NEGATIVE); LEUKOCYTE ESTERASE, URINE AUTO 1+ (NEGATIVE); MUCUS, URINE SMALL (NEGATIVE); NITRITE, URINE AUTO NEGATIVE (NEGATIVE); PROTEIN, URINE AUTO NEGATIVE (NEGATIVE); RBC, URINE AUTO 1 /HPF (0-3); SPECIFIC GRAVITY URINE AUTO 1.017 (1.002-1.035); SQUAMOUS EPITHELIAL CELL UR AU 2 /HPF (0-6); UROBILINOGEN, URINE AUTO 0.2 mg/dL (0.0-2.0); WBC, URINE AUTO 8 /HPF (0-3)
== END ==
LOC: M LABSMT 08:49
PROVIDERS: ATTEND Specialist
DX: N39.41 Urge incontinence (principal)

== ENCOUNTER → 2023-08-15 | Outpatient (CLI) | payer MEDICARE ==
[~2023-08-15] MED LIST changes: +CEFD1CAP9 PO; -CEFD300C42 PO
== END ==
LOC: M PLAIMG 08:53
PROVIDERS: ATTEND Nurse Practitioner Adult Health
DX: R05.1 Acute cough (principal)

== ENCOUNTER → 2023-08-23 | Outpatient (CLI) | payer MEDICARE ==
[2023-08-23 14:27] LABS: ALBUMIN 3.9 G/DL (3.2-5.2); ALKALINE PHOSPHATASE 91 U/L (46-116); ALT/SGPT 52 U/L (7.0-40); AST/SGOT 36 U/L (<34); BILIRUBIN,TOTAL 0.9 MG/DL (0.3-1.2); BLOOD UREA NITROGEN 10 MG/DL (9-23); CALCIUM LEVEL 9.3 MG/DL (8.3-10.6); CARBON DIOXIDE LEVEL 29 MMOL/L (20-31); CHLORIDE LEVEL 105 MMOL/L (98-107); CHOLESTEROL LEVEL 157 MG/DL (<200); CHOLESTEROL RISK RATIO 3.12 (<5); CREATININE FOR GFR 0.67 MG/DL (0.55-1.30); GLOMERULAR FILTRATION RATE > 60.0 (>45); GLUCOSE, FASTING 136 MG/DL (74-106); HDL CHOLESTEROL 50.2 MG/DL (>40); LDL CHOLESTEROL 88.4 MG/DL (<100); NON-HDL-C 106.8 MG/DL; POTASSIUM SERUM 3.9 MMOL/L (3.5-5.1); SODIUM LEVEL 141 MMOL/L (136-145); TRIGLYCERIDES LEVEL 92 MG/DL (<150)
== END ==
LOC: M PLALAB 09:08
PROVIDERS: ATTEND Nurse Practitioner Family
DX: I10 Essential (primary) hypertension (principal); E78.2 Mixed hyperlipidemia

== ENCOUNTER → 2023-08-31 | Outpatient (CLI) | payer MEDICARE ==
[2023-08-31 14:14] LABS: HEMOGLOBIN A1c 6.2 % (4.0-6.0)
== END ==
LOC: M PLALAB 09:11
PROVIDERS: ATTEND Nurse Practitioner Family
DX: R73.01 Impaired fasting glucose (principal)

== ENCOUNTER → 2024-02-22 | Outpatient (CLI) | payer MEDICARE ==
[~2024-02-22] MED LIST changes: +ONDA-282 PO; -ONDA4TAB6 PO
[2024-02-22 16:01] LABS: HEMOGLOBIN A1c 5.6 % (4.0-6.0)
[2024-02-22 16:19] LABS: BLOOD UREA NITROGEN 8 MG/DL (9-23); CARBON DIOXIDE LEVEL 30 MMOL/L (20-31); CHLORIDE LEVEL 103 MMOL/L (98-107); CREATININE FOR GFR 0.64 MG/DL (0.55-1.30); GLOMERULAR FILTRATION RATE > 60.0 (>39); GLUCOSE, FASTING 84 MG/DL (74-106); POTASSIUM SERUM 3.8 MMOL/L (3.5-5.1); SODIUM LEVEL 140 MMOL/L (136-145)
== END ==
LOC: M PLALAB 14:04
PROVIDERS: ATTEND Nurse Practitioner Family
DX: R73.03 Prediabetes (principal)

== ENCOUNTER → 2024-04-04 | Outpatient (CLI) | payer MEDICARE ==
[~2024-04-04] MED LIST changes: +PROHANCE 279.3MG/ML 15ML VIAL ONE; +PROHANCE 279.3MG/ML 5ML VIAL ONE
== END ==
LOC: M PLAIMG 09:21
PROVIDERS: ATTEND Nurse Practitioner Family
DX: G35 Multiple sclerosis (principal)
CPT/HCPCS: 70553; A9576

== ENCOUNTER → 2024-06-19 | Outpatient (CLI) | payer MEDICARE ==
[~2024-06-19] MED LIST changes: -PROHANCE 279.3MG/ML 15ML VIAL ONE; -PROHANCE 279.3MG/ML 5ML VIAL ONE
== END ==
LOC: M WHC 09:19
PROVIDERS: ATTEND Obstetrics & Gynecology
DX: Z12.31 Encounter for screening mammogram for malignant neoplasm of breast (principal)

== ENCOUNTER → 2025-03-15 | Outpatient (CLI) | payer MEDICARE ==
[~2025-03-15] MED LIST changes: +TOPI-256 PO; -TOPI25TA10 PO
== END ==
LOC: M PLAIMG 09:30
PROVIDERS: ATTEND Nurse Practitioner Family
DX: G35 Multiple sclerosis (principal); M50.223 Other cervical disc displacement at C6-C7 level; M50.222 Other cervical disc displacement at C5-C6 level; M50.221 Other cervical disc displacement at C4-C5 level; M50.21 Other cervical disc displacement, high cervical region; M51.24 Other intervertebral disc displacement, thoracic region

== ENCOUNTER → 2025-03-15 | Outpatient (CLI) | payer MEDICARE ==
[~2025-03-15] MED LIST changes: +PROHANCE 279.3MG/ML 15ML VIAL ONE
== END ==
LOC: M PLAIMG 08:56
PROVIDERS: ATTEND Nurse Practitioner Family
DX: G35 Multiple sclerosis (principal)

== ENCOUNTER → 2025-03-28 | Outpatient (CLI) | payer MEDICARE ==
[~2025-03-28] MED LIST changes: -PROHANCE 279.3MG/ML 15ML VIAL ONE
== END ==
LOC: M PLAIMG 16:03
PROVIDERS: ATTEND Nurse Practitioner Family
DX: M25.561 Pain in right knee (principal); M17.11 Unilateral primary osteoarthritis, right knee

== ENCOUNTER → 2025-07-15 | Outpatient (CLI) | payer MEDICARE | LOC: M WHC 11:50 | PROVIDERS: ATTEND Obstetrics & Gynecology | DX: Z12.31 Encounter for screening mammogram for malignant neoplasm of breast (principal) ==